=== PATIENT | female | born 1950 | race Caucasian/White ===

== ENCOUNTER 2018-01-10 19:57 | Inpatient (IN) | payer MEDICARE, MEDICAID ==
[~2018-01-10] VITALS: Ht 160 cm; Wt 45.5 kg
[~2018-01-10 19:57] MED LIST: ALBU18HF2 INH; BUDE10.22 INH; FERR325T39 PO; FLUO20CA39 PO; HYDR50CA5 PO; LIDO700A5 TOP; MESA800T PO; NIFE-2 PO; OLAN10TA3 PO; PANT-47 PO; TEG100T PO
[2018-01-10] MEDS ORDERED: acetaminophen 325mg tablet PO STA (20:10)
[2018-01-10] MEDS ORDERED: normal saline 1000ML IV soln IV ONE (20:10)
[2018-01-10] MEDS ORDERED: LORazepam 2 mg/ml vial IV ONE (20:20)
[2018-01-10 20:30] LABS: ABG HCO3 29.2 mmol/L (22.0-26.0); ABG OXYGEN SATURATION 87.5 % (95-98); ABG PCO2 (T) 60.8 mmHg (32.0-45.0); ABG PH (T) 7.304 (7.350-7.450); ABG PO2 (T) 62.6 mmHg (83-108); FCOHb 0.5 % (0.5-1.5); FLOW 4 L/min; FMetHb 0.3 % (0.3-1.12); FO2Hb 86.8 % (94-100); RESPIRATORY RATE (OBSERVED) 30 b/min; TOTAL HEMOGLOBIN 11.3 G/dl (12.0-16.0)
[2018-01-10 20:55] LABS: BASOPHILS % (AUTO) 0.2 % (0-1); EOSINOPHILS # (AUTO) 0.3 X10'3 (0-0.9); EOSINOPHILS % (AUTO) 1.9 % (0-6); HEMATOCRIT 32.1 % (35.0-45.0); HEMOGLOBIN 10.4 g/dl (12.0-16.0); LYMPHOCYTES # (AUTO) 1.3 X10'3 (1.1-4.8); MEAN CORPUSCULAR HGB CONC 32.3 % (33.0-36.5); MEAN CORPUSCULAR VOLUME 89.7 FL (78-98); MEAN PLATELET VOLUME 7.4 FL (7.4-10.4); MONOCYTES # (AUTO) 1.3 X10'3 (0-0.9); MONOCYTES % (AUTO) 9.9 % (2-12); NEUTROPHILS # (AUTO) 10.5 X10'3 (1.8-7.7); PLATELET COUNT 316 X10'3 (140-440); RED BLOOD COUNT 3.58 X10'6 (4.20-5.60); RED CELL DISTRIBUTION WIDTH 14.1 % (11.5-14.5); WHITE BLOOD COUNT 13.5 X10'3 (4.5-11.0)
[2018-01-10 20:59] LABS: CLARITY,URINE CLEAR (Clear); COLOR,URINE YELLOW (Yellow); GLUCOSE, URINE NEGATIVE (Neg); KETONES,URINE NEGATIVE (Neg); LEUKOCYTE ESTERASE ,URINE NEGATIVE (Neg); NITRITES, URINE NEGATIVE (Neg); OCCULT BLOOD,URINE NEGATIVE (Neg); PROTEIN,URINE 100 mg/dl (Neg); UROBILINOGEN,URINE 0.2 E.U/dL (0.2-1.0)
[2018-01-10 21:00] LABS: UA COLLECTION TYPE FOLEY CATH
[2018-01-10] MEDS ORDERED: levoFLOXACIN-Levaquin 750MG/D5 150 ML IV ONE (21:05)
[2018-01-10 21:10] LABS: HYALINE CASTS 0-3 /LPF (NEGATIVE); MUCUS STRANDS MANY /LPF (Neg); SQUAMOUS EPITHELIAL CELL,UR FEW /LPF (FEW)
[2018-01-10 21:10] LABS: D-DIMER 0.73 MG/L FEU (0-0.50)
[2018-01-10 21:13] LABS: WBC,URINE 0-4 /HPF (0-4)
[2018-01-10 21:14] LABS: BACTERIA,URINE NONE SEEN /HPF (Neg); RBC,URINE NONE SEEN /HPF (0-2)
[2018-01-10 21:16] LABS: ALANINE AMINOTRANSFERASE 28 U/L (12-78); ALBUMIN 2.8 G/DL (3.4-5.0); ALBUMIN/GLOBULIN RATIO 0.7 (1.1-1.5); ALKALINE PHOSPHATASE 72 IU/L (46-116); ANION GAP 6 (8-16); ASPARTATE AMINO TRANSFERASE 16 U/L (10-37); BILIRUBIN,TOTAL 0.2 MG/DL (0.1-1.0); BLOOD UREA NITROGEN 18 MG/DL (7-18); BUN/CREATININE RATIO 22.2 (6.6-38.0); CALCIUM 8.4 MG/DL (8.5-10.1); CHLORIDE 109 MMOL/L (99-107); CREATININE 0.81 MG/DL (0.40-0.90); GLUCOSE 117 MG/DL (70-104); MAGNESIUM 1.7 MG/DL (1.5-2.4); POTASSIUM 3.3 MMOL/L (3.5-5.1); SODIUM 146 MMOL/L (135-145); TOTAL CARBON DIOXIDE 30.9 MMOL/L (24-32); TOTAL PROTEIN 6.9 G/DL (6.4-8.2); eGFR 71 ML/MIN
[2018-01-10 21:47] LABS: ABG HCO3 28.8 mmol/L (22.0-26.0); ABG OXYGEN SATURATION 96.1 % (95-98); ABG PCO2 (T) 58.3 mmHg (32.0-45.0); ABG PH (T) 7.316 (7.350-7.450); ABG PO2 (T) 99.2 mmHg (83-108); ALLEN'S TEST Positive; FCOHb 0.4 % (0.5-1.5); FMetHb 0.1 % (0.3-1.12); FO2Hb 95.6 % (94-100); MINUTE VOLUME 9 L/min; RESPIRATORY RATE 16 b/min; RESPIRATORY RATE (OBSERVED) 24 b/min; TOTAL HEMOGLOBIN 10.4 G/dl (12.0-16.0)
[2018-01-10] MEDS ORDERED: methylPREDNISolone sod succ 125mg/2ml vial IV ONE (22:55)
[2018-01-10] MEDS ORDERED: iohexol 350MG/ML 100ml bottle IV ONE (22:58)
[2018-01-11] VITALS (8 sets, daily range): BP systolic 134–177; BP diastolic 66–95
[2018-01-11] MEDS ORDERED: mag hydrox/Alum hydrox/simeth 30ml oral suspension PO PRN (00:15)
[2018-01-11] MEDS ORDERED: ondansetron/PF 4mg/2ml inj IV PRN (00:15)
[2018-01-11] MEDS ORDERED: magnesium hydroxide 30ml (MOM) UD suspension PO PRN (00:15)
[2018-01-11 01:37] LABS: URINE AMPHETAMINE SCREEN POSITIVE (Neg); URINE BARBITUATE SCREEN NEGATIVE (Neg); URINE BENZODIAZEPINES SCREEN NEGATIVE (Neg); URINE CANNABINOID SCREEN POSITIVE (Neg); URINE COCAINE SCREEN NEGATIVE (Neg); URINE METHADONE SCREEN NEGATIVE (Neg); URINE OPIATE SCREEN POSITIVE (Neg); URINE PHENCYCLIDINE SCREEN NEGATIVE (Neg)
[2018-01-11] MEDS: heparin, porcine 5000 units/ml vial SQ SCH ×2 (08:42→21:11)
[2018-01-11] MEDS: methylPREDNISolone sod succ/PF 40mg inj. IV SCH ×3 (08:42→23:17)
[2018-01-11] MEDS ORDERED: FLUT1BLS3 (11:08)
[2018-01-11] MEDS ORDERED: [UNRECOGNIZED DRUG - CODE] (11:09)
[2018-01-11] MEDS ORDERED: MULT-955 PO (11:10)
[2018-01-11] MEDS ORDERED: ALBU8HFA PO (11:11)
[2018-01-11] MEDS ORDERED: NAPR-1115 PO (11:11)
[2018-01-11] MEDS ORDERED: SENN-161 PO (11:12)
[2018-01-11] MEDS ORDERED: TIOT18CA3 (11:12)
[2018-01-11] MEDS ORDERED: HYDR-569 PO (11:13)
[2018-01-11] MEDS ORDERED: pneumococcal 23-VAL P-sac vacc 25 mcg/0.5ml vial IMVAC ONE (11:50)
[2018-01-11] MEDS ORDERED: HYDR-4069 PO (12:20)
[2018-01-11] MEDS: FLUoxetine 20mg capsule PO SCH (12:56)
[2018-01-11] MEDS: guaiFENesin/DM oral syrup 5 ML CUP PO PRN ×2 (16:30→22:44)
[2018-01-11] MEDS: acetaminophen 325mg tablet PO PRN ×2 (16:34→22:44)
[2018-01-11] MEDS ORDERED: potassium Cl 20 mEq SR tablet PO PRN (17:00)
[2018-01-11] MEDS ORDERED: potassium Cl 40MEQ/NS 500ml 500 ML IV PRN ×2 (17:00)
[2018-01-11] MEDS ORDERED: HYDROXYZINE PAMOATE PO SCH (20:00)
[2018-01-11] MEDS: levoFLOXACIN 250mg tablet PO SCH (20:55)
[2018-01-11] MEDS: lactobacillus rhamnosus 10,000 MMU CELLS/CAPSULE PO SCH (20:55)
[2018-01-11] MEDS: carBAMazepine 100mg chewable tablet PO SCH (20:56)
[2018-01-11] MEDS: hydrALAZINE 25 MG tablet PO PRN (23:16)
[2018-01-12 03:00] VITALS: BP 144/80
[2018-01-12] MEDS: acetaminophen 325mg tablet PO PRN ×3 (05:17→23:54)
[2018-01-12] MEDS: guaiFENesin/DM oral syrup 5 ML CUP PO PRN ×3 (05:17→23:51)
[2018-01-12 05:41] LABS: BASOPHILS % (AUTO) 0 % (0-1); EOSINOPHILS # (AUTO) 0.3 X10'3 (0-0.9); EOSINOPHILS % (AUTO) 2.2 % (0-6); LYMPHOCYTES # (AUTO) 0.5 X10'3 (1.1-4.8); LYMPHOCYTES % (AUTO) 4.3 % (21-51); MEAN CORPUSCULAR HEMOGLOBIN 29.3 PG (27.0-31.0); MEAN CORPUSCULAR HGB CONC 32.3 % (33.0-36.5); MEAN CORPUSCULAR VOLUME 90.7 FL (78-98); MEAN PLATELET VOLUME 7.6 FL (7.4-10.4); MONOCYTES # (AUTO) 0.5 X10'3 (0-0.9); MONOCYTES % (AUTO) 4.2 % (2-12); NEUTROPHILS # (AUTO) 11.4 X10'3 (1.8-7.7); NEUTROPHILS % (AUTO) 89.3 % (42-75); PLATELET COUNT 327 X10'3 (140-440); RED BLOOD COUNT 3.74 X10'6 (4.20-5.60); RED CELL DISTRIBUTION WIDTH 13.8 % (11.5-14.5); WHITE BLOOD COUNT 12.7 X10'3 (4.5-11.0)
[2018-01-12 06:00] VITALS: BP 133/90
[2018-01-12 06:02] LABS: ALANINE AMINOTRANSFERASE 30 U/L (12-78); ALBUMIN 2.7 G/DL (3.4-5.0); ALBUMIN/GLOBULIN RATIO 0.6 (1.1-1.5); ALKALINE PHOSPHATASE 93 IU/L (46-116); ANION GAP 7 (8-16); ASPARTATE AMINO TRANSFERASE 23 U/L (10-37); BILIRUBIN,TOTAL 0.1 MG/DL (0.1-1.0); BLOOD UREA NITROGEN 12 MG/DL (7-18); CALCIUM 9.4 MG/DL (8.5-10.1); CHLORIDE 108 MMOL/L (99-107); CREATININE 0.75 MG/DL (0.40-0.90); GLUCOSE 147 MG/DL (70-104); POTASSIUM 4.5 MMOL/L (3.5-5.1); SODIUM 146 MMOL/L (135-145); TOTAL CARBON DIOXIDE 31.5 MMOL/L (24-32); TOTAL PROTEIN 7.1 G/DL (6.4-8.2); eGFR 77 ML/MIN
[2018-01-12] MEDS: methylPREDNISolone sod succ/PF 40mg inj. IV SCH ×3 (07:35→23:55)
[2018-01-12] MEDS: lactobacillus rhamnosus 10,000 MMU CELLS/CAPSULE PO SCH ×2 (07:36→20:45)
[2018-01-12] MEDS: pantoprazole 40mg Tablet.DR PO SCH (07:36)
[2018-01-12] MEDS: FLUoxetine 20mg capsule PO SCH (07:36)
[2018-01-12] MEDS: heparin, porcine 5000 units/ml vial SQ SCH ×2 (07:36→20:59)
[2018-01-12] MEDS: multivitamins, therapeutics tablet PO SCH (07:36)
[2018-01-12] MEDS: carBAMazepine 100mg chewable tablet PO SCH ×2 (07:37→20:45)
[2018-01-12] MEDS ORDERED: pneumococcal 23-VAL P-sac vacc 25 mcg/0.5ml vial IMVAC ONE ×2 (10:00)
[2018-01-12] MEDS ORDERED: FLU VACC QS2017-18 36MOS UP/PF 60 MCG/0.5 ML SYRINGE IMVAC ONE ×2 (10:00)
[2018-01-12 11:00] VITALS: BP 170/91
[2018-01-12 15:00] VITALS: BP 162/81
[2018-01-12] MEDS: hydrALAZINE 25 MG tablet PO PRN (16:26)
[2018-01-12 19:06] VITALS: BP 178/94
[2018-01-12] MEDS: levoFLOXACIN 250mg tablet PO SCH (20:45)
[2018-01-12] MEDS: cefTRIAXone 1g/NS 100ml IVPB 100 ML IV SCH (20:54)
[2018-01-12 23:00] VITALS: BP 127/88
[2018-01-13] MEDS: hydrALAZINE 25 MG tablet PO PRN ×4 (00:06→23:53)
[2018-01-13 03:00] VITALS: BP 144/82
[2018-01-13 05:17] LABS: BASOPHILS # (AUTO) 0.1 X10'3 (0-0.2); EOSINOPHILS % (AUTO) 0 % (0-6); HEMATOCRIT 37.1 % (35.0-45.0); HEMOGLOBIN 12.2 g/dl (12.0-16.0); LYMPHOCYTES # (AUTO) 0.9 X10'3 (1.1-4.8); LYMPHOCYTES % (AUTO) 6.2 % (21-51); MEAN CORPUSCULAR HEMOGLOBIN 29.4 PG (27.0-31.0); MEAN CORPUSCULAR VOLUME 89.1 FL (78-98); MEAN PLATELET VOLUME 7.2 FL (7.4-10.4); MONOCYTES # (AUTO) 0.3 X10'3 (0-0.9); MONOCYTES % (AUTO) 2.2 % (2-12); NEUTROPHILS # (AUTO) 12.7 X10'3 (1.8-7.7); NEUTROPHILS % (AUTO) 90.6 % (42-75); PLATELET COUNT 381 X10'3 (140-440); RED BLOOD COUNT 4.16 X10'6 (4.20-5.60); RED CELL DISTRIBUTION WIDTH 14.1 % (11.5-14.5)
[2018-01-13 05:46] LABS: ALANINE AMINOTRANSFERASE 30 U/L (12-78); ALBUMIN 2.9 G/DL (3.4-5.0); ALBUMIN/GLOBULIN RATIO 0.6 (1.1-1.5); ALKALINE PHOSPHATASE 95 IU/L (46-116); ANION GAP 8 (8-16); ASPARTATE AMINO TRANSFERASE 16 U/L (10-37); BILIRUBIN,TOTAL 0.2 MG/DL (0.1-1.0); BLOOD UREA NITROGEN 13 MG/DL (7-18); BUN/CREATININE RATIO 18.6 (6.6-38.0); CALCIUM 9.2 MG/DL (8.5-10.1); CHLORIDE 104 MMOL/L (99-107); GLUCOSE 147 MG/DL (70-104); MAGNESIUM 1.9 MG/DL (1.5-2.4); SODIUM 144 MMOL/L (135-145); TOTAL CARBON DIOXIDE 32.2 MMOL/L (24-32); TOTAL PROTEIN 7.4 G/DL (6.4-8.2); eGFR 84 ML/MIN
[2018-01-13 07:00] VITALS: BP 143/85
[2018-01-13] MEDS: methylPREDNISolone sod succ/PF 40mg inj. IV SCH ×3 (07:12→23:27)
[2018-01-13] MEDS: lactobacillus rhamnosus 10,000 MMU CELLS/CAPSULE PO SCH ×2 (07:12→20:17)
[2018-01-13] MEDS: pantoprazole 40mg Tablet.DR PO SCH (07:12)
[2018-01-13] MEDS: cefTRIAXone 1g/NS 100ml IVPB 100 ML IV SCH (07:12)
[2018-01-13] MEDS: multivitamins, therapeutics tablet PO SCH (07:13)
[2018-01-13] MEDS: heparin, porcine 5000 units/ml vial SQ SCH ×2 (07:13→20:17)
[2018-01-13] MEDS: FLUoxetine 20mg capsule PO SCH (07:13)
[2018-01-13] MEDS: carBAMazepine 100mg chewable tablet PO SCH ×2 (07:13→20:18)
[2018-01-13 11:00] VITALS: BP 188/101
[2018-01-13] MEDS: acetaminophen 325mg tablet PO PRN ×2 (11:24→18:28)
[2018-01-13] MEDS: guaiFENesin/DM oral syrup 5 ML CUP PO PRN ×2 (11:24→22:04)
[2018-01-13 15:00] VITALS: BP 168/91
[2018-01-13 20:00] VITALS: BP 142/80
[2018-01-13] MEDS: levoFLOXACIN 250mg tablet PO SCH (20:17)
[2018-01-13] MEDS ORDERED: nitroGLYCERIN 0.4mg SUBLingual tab SL PRN (23:10)
[2018-01-13 23:13] VITALS: BP 143/82
[2018-01-14] VITALS: BP 166/95
[2018-01-14] MEDS ORDERED: LORazepam 2 mg/ml vial IV PRN
[2018-01-14 01:03] VITALS: BP 117/76
[2018-01-14 05:14] LABS: BASOPHILS # (AUTO) 0.1 X10'3 (0-0.2); EOSINOPHILS % (AUTO) 0 % (0-6); HEMATOCRIT 35.4 % (35.0-45.0); HEMOGLOBIN 11.9 g/dl (12.0-16.0); LYMPHOCYTES # (AUTO) 0.7 X10'3 (1.1-4.8); LYMPHOCYTES % (AUTO) 7.1 % (21-51); MEAN CORPUSCULAR HEMOGLOBIN 29.7 PG (27.0-31.0); MEAN CORPUSCULAR HGB CONC 33.5 % (33.0-36.5); MEAN CORPUSCULAR VOLUME 88.8 FL (78-98); MEAN PLATELET VOLUME 7.3 FL (7.4-10.4); MONOCYTES # (AUTO) 0.5 X10'3 (0-0.9); MONOCYTES % (AUTO) 4.9 % (2-12); NEUTROPHILS # (AUTO) 8.2 X10'3 (1.8-7.7); PLATELET COUNT 372 X10'3 (140-440); RED BLOOD COUNT 3.99 X10'6 (4.20-5.60); RED CELL DISTRIBUTION WIDTH 13.9 % (11.5-14.5); WHITE BLOOD COUNT 9.5 X10'3 (4.5-11.0)
[2018-01-14 05:48] LABS: ALANINE AMINOTRANSFERASE 21 U/L (12-78); ALBUMIN 2.6 G/DL (3.4-5.0); ALBUMIN/GLOBULIN RATIO 0.6 (1.1-1.5); ALKALINE PHOSPHATASE 83 IU/L (46-116); ANION GAP 6 (8-16); ASPARTATE AMINO TRANSFERASE 11 U/L (10-37); BILIRUBIN,TOTAL 0.2 MG/DL (0.1-1.0); BLOOD UREA NITROGEN 18 MG/DL (7-18); BUN/CREATININE RATIO 25.4 (6.6-38.0); CHLORIDE 105 MMOL/L (99-107); CREATININE 0.71 MG/DL (0.40-0.90); GLUCOSE 140 MG/DL (70-104); SODIUM 144 MMOL/L (135-145); TOTAL CARBON DIOXIDE 33.3 MMOL/L (24-32); TOTAL PROTEIN 6.8 G/DL (6.4-8.2); eGFR 82 ML/MIN
[2018-01-14 08:00] VITALS: BP 147/83
[2018-01-14] MEDS: pantoprazole 40mg Tablet.DR PO SCH (09:49)
[2018-01-14] MEDS: cefTRIAXone 1g/NS 100ml IVPB 100 ML IV SCH (09:49)
[2018-01-14] MEDS: methylPREDNISolone sod succ/PF 40mg inj. IV SCH ×2 (09:49→16:16)
[2018-01-14] MEDS: FLUoxetine 20mg capsule PO SCH (09:50)
[2018-01-14] MEDS: lactobacillus rhamnosus 10,000 MMU CELLS/CAPSULE PO SCH ×2 (09:50→20:04)
[2018-01-14] MEDS: carBAMazepine 100mg chewable tablet PO SCH ×2 (09:50→20:05)
[2018-01-14] MEDS: heparin, porcine 5000 units/ml vial SQ SCH ×2 (09:51→20:05)
[2018-01-14] MEDS: multivitamins, therapeutics tablet PO SCH (09:51)
[2018-01-14] MEDS: guaiFENesin/DM oral syrup 5 ML CUP PO PRN ×2 (10:07→21:14)
[2018-01-14 12:13] VITALS: BP 188/93
[2018-01-14] MEDS: predniSONE 20 mg tablet PO SCH (16:45)
[2018-01-14 20:00] VITALS: BP 168/87
[2018-01-14] MEDS: acetaminophen 325mg tablet PO PRN (20:05)
[2018-01-14] MEDS: levoFLOXACIN 250mg tablet PO SCH (20:05)
[2018-01-14] MEDS: hydrALAZINE 25 MG tablet PO PRN (21:11)
[2018-01-15] VITALS: BP 141/82
[2018-01-15] MEDS: guaiFENesin/DM oral syrup 5 ML CUP PO PRN ×2 (04:07→11:05)
[2018-01-15 05:54] LABS: BASOPHILS % (AUTO) 0.1 % (0-1); EOSINOPHILS # (AUTO) 0.1 X10'3 (0-0.9); EOSINOPHILS % (AUTO) 0.9 % (0-6); HEMOGLOBIN 12.2 g/dl (12.0-16.0); LYMPHOCYTES # (AUTO) 1.3 X10'3 (1.1-4.8); LYMPHOCYTES % (AUTO) 12.1 % (21-51); MEAN CORPUSCULAR HEMOGLOBIN 29.6 PG (27.0-31.0); MEAN CORPUSCULAR VOLUME 89.7 FL (78-98); MEAN PLATELET VOLUME 7.5 FL (7.4-10.4); MONOCYTES # (AUTO) 0.8 X10'3 (0-0.9); MONOCYTES % (AUTO) 7.8 % (2-12); NEUTROPHILS # (AUTO) 8.3 X10'3 (1.8-7.7); NEUTROPHILS % (AUTO) 79.1 % (42-75); PLATELET COUNT 383 X10'3 (140-440); RED BLOOD COUNT 4.13 X10'6 (4.20-5.60); RED CELL DISTRIBUTION WIDTH 14.1 % (11.5-14.5); WHITE BLOOD COUNT 10.4 X10'3 (4.5-11.0)
[2018-01-15 06:13] LABS: ALANINE AMINOTRANSFERASE 23 U/L (12-78); ALBUMIN 2.5 G/DL (3.4-5.0); ALBUMIN/GLOBULIN RATIO 0.6 (1.1-1.5); ALKALINE PHOSPHATASE 77 IU/L (46-116); ASPARTATE AMINO TRANSFERASE 13 U/L (10-37); BILIRUBIN,TOTAL 0.2 MG/DL (0.1-1.0); BLOOD UREA NITROGEN 20 MG/DL (7-18); CALCIUM 8.5 MG/DL (8.5-10.1); CHLORIDE 99 MMOL/L (99-107); CREATININE 0.91 MG/DL (0.40-0.90); GLUCOSE 140 MG/DL (70-104); TOTAL CARBON DIOXIDE 34.9 MMOL/L (24-32); TOTAL PROTEIN 6.4 G/DL (6.4-8.2); eGFR 62 ML/MIN
[2018-01-15 06:49] LABS: ANION GAP 9 (8-16); POTASSIUM 3.5 MMOL/L (3.5-5.1); SODIUM 143 MMOL/L (135-145)
[2018-01-15 07:00] VITALS: BP 166/99
[2018-01-15] MEDS: pantoprazole 40mg Tablet.DR PO SCH (07:03)
[2018-01-15] MEDS: carBAMazepine 100mg chewable tablet PO SCH (07:03)
[2018-01-15] MEDS: lactobacillus rhamnosus 10,000 MMU CELLS/CAPSULE PO SCH (07:04)
[2018-01-15] MEDS: FLUoxetine 20mg capsule PO SCH (07:04)
[2018-01-15] MEDS: predniSONE 20 mg tablet PO SCH (07:04)
[2018-01-15] MEDS: multivitamins, therapeutics tablet PO SCH (07:04)
[2018-01-15] MEDS: cefTRIAXone 1g/NS 100ml IVPB 100 ML IV SCH (07:06)
[2018-01-15] MEDS: hydrALAZINE 25 MG tablet PO PRN (07:08)
[2018-01-15] MEDS: heparin, porcine 5000 units/ml vial SQ SCH (07:09)
[2018-01-15] MEDS ORDERED: ALBU8HFA PO (10:13)
[2018-01-15] MEDS ORDERED: PRED20TA PO (10:13)
[2018-01-15] MEDS ORDERED: TIOT18CA3 INH (10:13)
[2018-01-15] MEDS ORDERED: LEVO250T58 PO (10:13)
[2018-01-15 11:00] VITALS: BP 137/79
[2018-01-16] MEDS ORDERED: CefTRIAXone/D5W-Rocephin 1gm 50 ML IV SCH (08:00)
== END 2018-01-15 16:33 | DRG 190 ==
LOC: ER 19:58 → ED HOLD 01-11 00:11 → EDBEDREQ 01-11 00:27 → PCU 3S 01-11 02:00 → SUR 3N 01-13 18:56
PROVIDERS: ADMIT Internal Medicine; ATTEND Family Medicine
PROC: B32T1ZZ Computerized Tomography (CT Scan) of Left Pulmonary Artery using Low Osmolar Contrast (ICD-10-PCS; principal; 2018-01-10)
PROC: B3201ZZ Computerized Tomography (CT Scan) of Thoracic Aorta using Low Osmolar Contrast (ICD-10-PCS; 2018-01-10)
PROC: B32S1ZZ Computerized Tomography (CT Scan) of Right Pulmonary Artery using Low Osmolar Contrast (ICD-10-PCS; 2018-01-10)
PROC: 5A09357 Assistance with Respiratory Ventilation, Less than 24 Consecutive Hours, Continuous Positive Airway Pressure (ICD-10-PCS; 2018-01-10)
DX: J44.1 Chronic obstructive pulmonary disease with (acute) exacerbation (principal); J96.21 Acute and chronic respiratory failure with hypoxia; G92 Toxic encephalopathy; E87.0 Hyperosmolality and hypernatremia; J18.1 Lobar pneumonia, unspecified organism; J96.22 Acute and chronic respiratory failure with hypercapnia; Z68.1 Body mass index [BMI] 19.9 or less, adult; E87.2 Acidosis; F31.30 Bipolar disorder, current episode depressed, mild or moderate severity, unspecified; J44.0 Chronic obstructive pulmonary disease with (acute) lower respiratory infection; I10 Essential (primary) hypertension; E87.6 Hypokalemia; I25.10 Atherosclerotic heart disease of native coronary artery without angina pectoris; D64.9 Anemia, unspecified; F15.10 Other stimulant abuse, uncomplicated; F17.200 Nicotine dependence, unspecified, uncomplicated; F12.90 Cannabis use, unspecified, uncomplicated; T43.625A Adverse effect of amphetamines, initial encounter; Z96.649 Presence of unspecified artificial hip joint; Z59.0 Homelessness; Z79.899 Other long term (current) drug therapy; Z88.8 Allergy status to other drugs, medicaments and biological substances; Z87.11 Personal history of peptic ulcer disease; Z80.9 Family history of malignant neoplasm, unspecified; Y92.89 Other specified places as the place of occurrence of the external cause
CPT/HCPCS: 36415; 36600; 71045; 71275; 73610; 80053; 80305; 81001; 82803; 83605; 83735; 84484; 85018; 85025; 85379; 87040; 87070; 87502; 87503; 90732; 93005; 94660; 96361; 96365; 96375; 97116; 97161; 97530; 97535; 99285; A6449; J0696; J1644; J1956; J2060; J2920; J2930; J3480; J7030; J7512; Q9967

== ENCOUNTER 2019-01-26 12:27 | Emergency (ER) | payer MEDICARE, MEDICAID ==
[~2019-01-26] VITALS: Ht 160 cm; Wt 51.0 kg
[~2019-01-26 12:27] MED LIST changes: -ALBU18HF2 INH; +ALBU8HFA PO; -BUDE10.22 INH; -FERR325T39 PO; +FLUT1BLS3; +HYDR-4069 PO; -HYDR50CA5 PO; +LEVO250T58 PO; -LIDO700A5 TOP; -MESA800T PO; +MULT-955 PO; +NAPR-1115 PO; -NIFE-2 PO; -OLAN10TA3 PO; +PRED20TA PO; +SENN-162 PO; +TIOT18CA3 INH; +[UNRECOGNIZED DRUG - CODE]
[2019-01-26] MEDS ORDERED: ipratropium/albuterol 3ml nebule NEB ONE (14:00)
[2019-01-26] MEDS ORDERED: cloNIDine 0.1 mg tablet PO ONE (14:05)
--- NOTE | 2019-01-26 14:31 | NUR ---
RT AT BEDSIDE
[2019-01-26 14:33] LABS: BASOPHILS % (AUTO) 0.3 % (0-1); EOSINOPHILS # (AUTO) 0.3 X10'3 (0-0.9); EOSINOPHILS % (AUTO) 4.2 % (0-6); HEMATOCRIT 36.7 % (35.0-45.0); HEMOGLOBIN 11.9 g/dl (12.0-16.0); LYMPHOCYTES # (AUTO) 1.6 X10'3 (1.1-4.8); LYMPHOCYTES % (AUTO) 22.1 % (21-51); MEAN CORPUSCULAR HEMOGLOBIN 30.9 PG (27.0-31.0); MEAN CORPUSCULAR HGB CONC 32.5 g/dL (33.0-36.5); MEAN PLATELET VOLUME 7.2 FL (7.4-10.4); MONOCYTES # (AUTO) 0.6 X10'3 (0-0.9); MONOCYTES % (AUTO) 8.7 % (2-12); NEUTROPHILS # (AUTO) 4.7 X10'3 (1.8-7.7); NEUTROPHILS % (AUTO) 64.7 % (42-75); PLATELET COUNT 359 X10'3 (140-440); RED BLOOD COUNT 3.86 X10'6 (4.20-5.60); RED CELL DISTRIBUTION WIDTH 13.2 % (11.5-14.5); WHITE BLOOD COUNT 7.3 X10'3 (4.5-11.0)
[2019-01-26 14:53] LABS: ALANINE AMINOTRANSFERASE 11 U/L (12-78); ALBUMIN 3.6 G/DL (3.4-5.0); ALBUMIN/GLOBULIN RATIO 0.9 (1.1-1.5); ALKALINE PHOSPHATASE 68 IU/L (46-116); ANION GAP 9 (8-16); ASPARTATE AMINO TRANSFERASE 17 U/L (10-37); BILIRUBIN,TOTAL 0.2 MG/DL (0.1-1.0); BLOOD UREA NITROGEN 16 MG/DL (7-18); BUN/CREATININE RATIO 24.2 (6.6-38.0); CALCIUM 9.3 MG/DL (8.5-10.1); CHLORIDE 107 MMOL/L (99-107); CREATININE 0.66 MG/DL (0.40-0.90); GLUCOSE 85 MG/DL (70-104); POTASSIUM 3.8 MMOL/L (3.5-5.1); SODIUM 141 MMOL/L (135-145); TOTAL CARBON DIOXIDE 24.6 MMOL/L (24-32); TOTAL PROTEIN 7.7 G/DL (6.4-8.2); eGFR 89 ML/MIN
[2019-01-26 15:26] VITALS: BP 136/82
== END 2019-01-26 15:28 | disposition home or self-care (01) ==
LOC: ER 12:29
DX: R19.7 Diarrhea, unspecified (principal); J44.9 Chronic obstructive pulmonary disease, unspecified; I10 Essential (primary) hypertension; F12.90 Cannabis use, unspecified, uncomplicated; F15.10 Other stimulant abuse, uncomplicated; Z98.890 Other specified postprocedural states; Z59.0 Homelessness; Z87.11 Personal history of peptic ulcer disease; Z91.011 Allergy to milk products; Z88.5 Allergy status to narcotic agent; Z79.899 Other long term (current) drug therapy; Z99.81 Dependence on supplemental oxygen
CPT/HCPCS: 36415; 71045; 80053; 85025; 94640; 94760; 99284

== ENCOUNTER 2019-06-13 14:37 | Inpatient (IN) | payer MEDICARE, MEDICAID ==
[~2019-06-13] VITALS: Ht 160 cm; Wt 49.5 kg
[~2019-06-13 14:37] MED LIST changes: +GUAI100S69; -[UNRECOGNIZED DRUG - CODE]
[2019-06-13] MEDS ORDERED: ipratropium/albuterol 3ml nebule NEB ONE (15:45)
[2019-06-13] MEDS ORDERED: methylPREDNISolone sod succ 125mg/2ml vial IV ONE (15:45)
[2019-06-13] MEDS ORDERED: normal saline 1000ML IV soln IV ONE (15:45)
[2019-06-13 16:24] LABS: BASOPHILS % (AUTO) 0.4 % (0-1); EOSINOPHILS # (AUTO) 0.2 X10'3 (0-0.9); HEMATOCRIT 37.3 % (35.0-45.0); HEMOGLOBIN 12.1 g/dl (12.0-16.0); LYMPHOCYTES # (AUTO) 1.6 X10'3 (1.1-4.8); LYMPHOCYTES % (AUTO) 13.2 % (21-51); MEAN CORPUSCULAR HEMOGLOBIN 30.5 PG (27.0-31.0); MEAN CORPUSCULAR HGB CONC 32.5 g/dL (33.0-36.5); MEAN CORPUSCULAR VOLUME 93.8 FL (78-98); MONOCYTES % (AUTO) 8.2 % (2-12); NEUTROPHILS # (AUTO) 9.2 X10'3 (1.8-7.7); NEUTROPHILS % (AUTO) 76.2 % (42-75); PLATELET COUNT 445 X10'3 (140-440); RED BLOOD COUNT 3.97 X10'6 (4.20-5.60); RED CELL DISTRIBUTION WIDTH 13.8 % (11.5-14.5); WHITE BLOOD COUNT 12.1 X10'3 (4.5-11.0)
[2019-06-13 16:39] LABS: ALANINE AMINOTRANSFERASE 16 U/L (12-78); ALBUMIN 3.4 G/DL (3.4-5.0); ALBUMIN/GLOBULIN RATIO 0.8 (1.1-1.5); ALKALINE PHOSPHATASE 74 IU/L (46-116); ANION GAP 6 (8-16); ASPARTATE AMINO TRANSFERASE 11 U/L (10-37); BILIRUBIN,TOTAL 0.3 MG/DL (0.1-1.0); BLOOD UREA NITROGEN 10 MG/DL (7-18); BUN/CREATININE RATIO 14.5 (6.6-38.0); CALCIUM 9.3 MG/DL (8.5-10.1); CHLORIDE 106 MMOL/L (99-107); CREATININE 0.69 MG/DL (0.40-0.90); GLUCOSE 97 MG/DL (70-104); SODIUM 144 MMOL/L (135-145); TOTAL CARBON DIOXIDE 31.9 MMOL/L (24-32); TOTAL PROTEIN 7.7 G/DL (6.4-8.2); eGFR 85 ML/MIN
[2019-06-13 16:47] LABS: MAGNESIUM 1.8 MG/DL (1.5-2.4)
[2019-06-13] MEDS ORDERED: morphine 4 MG/ML inj SYRINge IV ONE (17:05)
[2019-06-13 17:38] LABS: CLARITY,URINE SLIGHTLY CLOUDY (Clear); COLOR,URINE YELLOW (Yellow); GLUCOSE, URINE NEGATIVE (Neg); KETONES,URINE NEGATIVE (Neg); LEUKOCYTE ESTERASE ,URINE NEGATIVE (Neg); NITRITES, URINE POSITIVE (Neg); OCCULT BLOOD,URINE NEGATIVE (Neg); PROTEIN,URINE NEGATIVE (Neg); UROBILINOGEN,URINE 0.2 E.U/dL (0.2-1.0)
[2019-06-13 17:41] LABS: UA COLLECTION TYPE STRAIGHT CATH
[2019-06-13 17:43] LABS: RBC,URINE NONE SEEN /HPF (0-2)
[2019-06-13 17:44] LABS: BACTERIA,URINE 4+ /HPF (Neg); SQUAMOUS EPITHELIAL CELL,UR FEW /LPF (FEW); WBC CLUMPS,URINE FEW /HPF (NEGATIVE)
[2019-06-13] MEDS ORDERED: AMLO-314 PO (17:47)
[2019-06-13] MEDS ORDERED: LOPE-144 PO (17:47)
[2019-06-13] MEDS ORDERED: MELA3TAB64 PO (17:47)
[2019-06-13] MEDS ORDERED: UMEC62.5 IH (17:47)
[2019-06-13] MEDS ORDERED: BUDE10.2 INH (17:47)
--- NOTE | 2019-06-13 18:27 | NUR ---
pt attempting to have bm, reports if she can have some jello or any other food than she will usually have bm w/in 20 min. Tatiana NGUYEN nitifiec and ok for Pt to have some food. Pt with urine and some small formed stool in bsc (contaminated, so unable to send for stool specimin). hr 102 otherwise vss. Enteric isolation pending cdiff lab.
[2019-06-13] MEDS: vancomycin 250MG/10ML UD oral solution 10ML BOTTLE PO SCH (18:34)
[2019-06-13] MEDS ORDERED: ondansetron/PF 4mg/2ml inj IV PRN (19:30)
[2019-06-13] MEDS ORDERED: acetaminophen 325mg tablet PO PRN (19:30)
[2019-06-13] MEDS: normal saline 1000ml 1,000 ML IV SCH (19:36)
[2019-06-13] MEDS ORDERED: non-formulary drug (Budesonide/Formoterol Fumarate (Symbicort 160-4.5 Mcg Inhaler) 1 PUFFS INH SCH (20:00)
--- NOTE | 2019-06-13 20:43 | NUR ---
ATTEMPTED TO CALL REPORT. SAID ROOM WAS NOT READY FOR ANOTHER 15 MINUTES. [facility] ROOM IS READY. RN STATED THEY WOULD CALL BACK IN 15 MINUTES WHEN THE ROOM IS READY.
[2019-06-13] MEDS ORDERED: ipratropium 0.5 MG/2.5ML nebule IH SCH (21:00)
[2019-06-13] MEDS ORDERED: albuterol 2.5 MG/3 ML nebule NEB SCH (21:00)
[2019-06-13 21:30] VITALS: BP 140/94
[2019-06-13] MEDS: budesonide 0.5mg/2ml UD nebule IH SCH (22:07)
[2019-06-13] MEDS: ipratropium/albuterol 3ml nebule IH SCH (22:08)
[2019-06-13] MEDS: heparin, porcine 5000 units/ml vial SQ SCH (22:28)
[2019-06-13] MEDS: Melatonin 3mg tablet PO SCH (22:28)
[2019-06-13] MEDS: guaiFENesin/DM 10ml UD oral syrup PO PRN (22:28)
[2019-06-13] MEDS: HYDROcodone/acetaminophen 5mg/325mg tablet PO PRN (22:29)
[2019-06-14] VITALS: BP 146/93
[2019-06-14] MEDS: vancomycin 250MG/10ML UD oral solution 10ML BOTTLE PO SCH ×4 (01:54→20:24)
[2019-06-14] MEDS: ipratropium/albuterol 3ml nebule IH SCH ×4 (03:12→21:11)
[2019-06-14] MEDS: guaiFENesin/DM 10ml UD oral syrup PO PRN ×2 (04:26→20:24)
[2019-06-14] MEDS: HYDROcodone/acetaminophen 5mg/325mg tablet PO PRN ×3 (04:27→22:39)
[2019-06-14] MEDS: normal saline 1000ml 1,000 ML IV SCH (04:32)
[2019-06-14 05:47] LABS: BASOPHILS % (AUTO) 0.2 % (0-1); EOSINOPHILS % (AUTO) 0 % (0-6); HEMATOCRIT 31.3 % (35.0-45.0); HEMOGLOBIN 10.2 g/dl (12.0-16.0); LYMPHOCYTES # (AUTO) 0.7 X10'3 (1.1-4.8); LYMPHOCYTES % (AUTO) 8.5 % (21-51); MEAN CORPUSCULAR HEMOGLOBIN 30.7 PG (27.0-31.0); MEAN CORPUSCULAR HGB CONC 32.5 g/dL (33.0-36.5); MEAN CORPUSCULAR VOLUME 94.4 FL (78-98); MEAN PLATELET VOLUME 7.4 FL (7.4-10.4); MONOCYTES # (AUTO) 0.1 X10'3 (0-0.9); MONOCYTES % (AUTO) 1.8 % (2-12); NEUTROPHILS # (AUTO) 7.4 X10'3 (1.8-7.7); NEUTROPHILS % (AUTO) 89.5 % (42-75); PLATELET COUNT 398 X10'3 (140-440); RED BLOOD COUNT 3.32 X10'6 (4.20-5.60); RED CELL DISTRIBUTION WIDTH 14.1 % (11.5-14.5); WHITE BLOOD COUNT 8.2 X10'3 (4.5-11.0)
[2019-06-14 06:13] LABS: ALANINE AMINOTRANSFERASE 16 U/L (12-78); ALBUMIN 2.9 G/DL (3.4-5.0); ALBUMIN/GLOBULIN RATIO 0.8 (1.1-1.5); ALKALINE PHOSPHATASE 59 IU/L (46-116); ANION GAP 8 (8-16); ASPARTATE AMINO TRANSFERASE 16 U/L (10-37); BILIRUBIN,TOTAL 0.2 MG/DL (0.1-1.0); BLOOD UREA NITROGEN 8 MG/DL (7-18); BUN/CREATININE RATIO 11.6 (6.6-38.0); CALCIUM 8.6 MG/DL (8.5-10.1); CHLORIDE 108 MMOL/L (99-107); CREATININE 0.69 MG/DL (0.40-0.90); GLUCOSE 194 MG/DL (70-104); POTASSIUM 3.3 MMOL/L (3.5-5.1); SODIUM 143 MMOL/L (135-145); TOTAL CARBON DIOXIDE 27.4 MMOL/L (24-32); TOTAL PROTEIN 6.6 G/DL (6.4-8.2); eGFR 85 ML/MIN
--- NOTE | 2019-06-14 06:17 | NUR ---
Problems reprioritized. Patient report given, questions answered & plan of care reviewed with CLAY Watkins. Addendum: 06/14/19 at 0617 by Samira Riley RN Amended: Links added.
[2019-06-14 07:00] VITALS: BP 151/93
[2019-06-14] MEDS: loperamide 2mg capsule PO SCH (07:44)
[2019-06-14] MEDS: heparin, porcine 5000 units/ml vial SQ SCH ×2 (07:44→20:23)
[2019-06-14] MEDS: amLODIPine 5mg tablet PO SCH (07:44)
[2019-06-14] MEDS ORDERED: LOPERAMIDE HCL PO SCH (08:00)
[2019-06-14] MEDS ORDERED: non-formulary drug (Umeclidinium Bromide (Incruse Ellipta) 1 PUFF) IH SCH (08:00)
[2019-06-14] MEDS: carBAMazepine 100mg chewable tablet PO SCH ×2 (08:30→20:24)
[2019-06-14] MEDS: budesonide 0.5mg/2ml UD nebule IH SCH ×2 (09:36→21:10)
[2019-06-14 11:00] VITALS: BP 153/84
[2019-06-14] MEDS ORDERED: potassium Cl 20 mEq SR tablet PO PRN (11:35)
[2019-06-14] MEDS ORDERED: magnesium 4gm in 100ml NS 100 ML IV PRN (11:35)
[2019-06-14] MEDS ORDERED: magnesium Cl slow-release 64mg tablet PO PRN (11:35)
[2019-06-14] MEDS ORDERED: potassium CL 10mEq/100ml bag 100 ML IV PRN (11:35)
[2019-06-14] MEDS: predniSONE 20 mg tablet PO SCH (14:48)
[2019-06-14] MEDS: potassium Cl 20 mEq SR tablet PO PRN ×2 (16:57→20:24)
[2019-06-14 18:00] VITALS: BP 132/84
--- NOTE | 2019-06-14 18:18 | NUR ---
Problems reprioritized. Patient report given, questions answered & plan of care reviewed with YONNY WILLIAMSON.
[2019-06-14] MEDS: Melatonin 3mg tablet PO SCH (20:25)
--- NOTE | 2019-06-14 21:18 | NUR ---
Patient in room [facility]. I have received report from CLAY Watkins and had the opportunity to ask questions and assume patient care. Addendum: 06/14/19 at 2120 by Samira Riley RN Amended: Links added.
[2019-06-15 00:16] VITALS: BP 139/87
[2019-06-15] MEDS: vancomycin 250MG/10ML UD oral solution 10ML BOTTLE PO SCH ×4 (02:21→20:06)
[2019-06-15] MEDS: guaiFENesin/DM 10ml UD oral syrup PO PRN ×4 (02:22→21:13)
[2019-06-15] MEDS: ipratropium/albuterol 3ml nebule IH SCH ×4 (03:20→20:20)
[2019-06-15] MEDS: HYDROcodone/acetaminophen 5mg/325mg tablet PO PRN ×3 (04:39→20:07)
[2019-06-15] MEDS: normal saline 1000ml 1,000 ML IV SCH ×2 (04:48→12:34)
[2019-06-15 05:21] LABS: BASOPHILS % (AUTO) 0.2 % (0-1); EOSINOPHILS % (AUTO) 0 % (0-6); HEMATOCRIT 32.3 % (35.0-45.0); HEMOGLOBIN 10.3 g/dl (12.0-16.0); LYMPHOCYTES # (AUTO) 1.1 X10'3 (1.1-4.8); LYMPHOCYTES % (AUTO) 7.4 % (21-51); MEAN CORPUSCULAR HEMOGLOBIN 30.1 PG (27.0-31.0); MEAN CORPUSCULAR HGB CONC 31.9 g/dL (33.0-36.5); MEAN CORPUSCULAR VOLUME 94.4 FL (78-98); MEAN PLATELET VOLUME 7.4 FL (7.4-10.4); MONOCYTES % (AUTO) 6.6 % (2-12); NEUTROPHILS # (AUTO) 12.8 X10'3 (1.8-7.7); NEUTROPHILS % (AUTO) 85.8 % (42-75); PLATELET COUNT 415 X10'3 (140-440); RED BLOOD COUNT 3.42 X10'6 (4.20-5.60); RED CELL DISTRIBUTION WIDTH 14.4 % (11.5-14.5); WHITE BLOOD COUNT 14.9 X10'3 (4.5-11.0)
[2019-06-15 05:41] LABS: ALANINE AMINOTRANSFERASE 18 U/L (12-78); ALBUMIN 3.1 G/DL (3.4-5.0); ALBUMIN/GLOBULIN RATIO 0.8 (1.1-1.5); ALKALINE PHOSPHATASE 57 IU/L (46-116); ANION GAP 6 (8-16); ASPARTATE AMINO TRANSFERASE 17 U/L (10-37); BILIRUBIN,TOTAL 0.2 MG/DL (0.1-1.0); BLOOD UREA NITROGEN 11 MG/DL (7-18); BUN/CREATININE RATIO 15.7 (6.6-38.0); CALCIUM 8.8 MG/DL (8.5-10.1); CHLORIDE 109 MMOL/L (99-107); GLUCOSE 136 MG/DL (70-104); POTASSIUM 4.2 MMOL/L (3.5-5.1); SODIUM 144 MMOL/L (135-145); TOTAL CARBON DIOXIDE 28.9 MMOL/L (24-32); TOTAL PROTEIN 6.9 G/DL (6.4-8.2); eGFR 83 ML/MIN
--- NOTE | 2019-06-15 06:37 | NUR ---
Problems reprioritized. Patient report given, questions answered & plan of care reviewed with CLAY Sánchez. Addendum: 06/15/19 at 0638 by Samira Riley RN Amended: Links added.
[2019-06-15] MEDS: loperamide 2mg capsule PO SCH (08:00)
[2019-06-15] MEDS: budesonide 0.5mg/2ml UD nebule IH SCH ×2 (08:23→20:20)
[2019-06-15 08:33] VITALS: BP 134/80
[2019-06-15] MEDS: carBAMazepine 100mg chewable tablet PO SCH ×2 (08:49→20:07)
[2019-06-15] MEDS: heparin, porcine 5000 units/ml vial SQ SCH ×2 (08:49→20:08)
[2019-06-15] MEDS: amLODIPine 5mg tablet PO SCH (08:50)
[2019-06-15] MEDS: predniSONE 20 mg tablet PO SCH (08:51)
[2019-06-15 11:00] VITALS: BP 152/101
[2019-06-15 13:35] VITALS: BP 163/83
--- NOTE | 2019-06-15 18:18 | NUR ---
Received report from CLAY Sánchez. Patient is awake and alert on 2L NC, in no apparent distress. Call light and items of frequent use within reach. Will continue to monitor.
--- NOTE | 2019-06-15 18:23 | NUR ---
Problems reprioritized. Patient report given, questions answered & plan of care reviewed with radha WILLIAMSON.
[2019-06-15 20:00] VITALS: BP 145/73
[2019-06-15] MEDS: Melatonin 3mg tablet PO SCH (20:06)
[2019-06-16] VITALS: BP 150/85
[2019-06-16] MEDS: HYDROcodone/acetaminophen 5mg/325mg tablet PO PRN ×3 (02:33→19:31)
[2019-06-16] MEDS: vancomycin 250MG/10ML UD oral solution 10ML BOTTLE PO SCH ×4 (02:33→19:30)
[2019-06-16] MEDS: ipratropium/albuterol 3ml nebule IH SCH ×4 (02:57→19:29)
[2019-06-16] MEDS: normal saline 1000ml 1,000 ML IV SCH ×2 (03:08→17:36)
[2019-06-16] MEDS: guaiFENesin/DM 10ml UD oral syrup PO PRN ×3 (03:57→22:41)
[2019-06-16 04:55] LABS: BASOPHILS % (AUTO) 0.4 % (0-1); EOSINOPHILS % (AUTO) 0.1 % (0-6); HEMOGLOBIN 10.3 g/dl (12.0-16.0); LYMPHOCYTES % (AUTO) 19.3 % (21-51); MEAN CORPUSCULAR HEMOGLOBIN 30.7 PG (27.0-31.0); MEAN CORPUSCULAR HGB CONC 32.3 g/dL (33.0-36.5); MEAN CORPUSCULAR VOLUME 95.3 FL (78-98); MEAN PLATELET VOLUME 7.6 FL (7.4-10.4); MONOCYTES # (AUTO) 1.2 X10'3 (0-0.9); MONOCYTES % (AUTO) 11.6 % (2-12); NEUTROPHILS % (AUTO) 68.6 % (42-75); PLATELET COUNT 401 X10'3 (140-440); RED BLOOD COUNT 3.36 X10'6 (4.20-5.60); RED CELL DISTRIBUTION WIDTH 14.7 % (11.5-14.5); WHITE BLOOD COUNT 10.2 X10'3 (4.5-11.0)
[2019-06-16 05:22] LABS: ALANINE AMINOTRANSFERASE 19 U/L (12-78); ALBUMIN 3.1 G/DL (3.4-5.0); ALBUMIN/GLOBULIN RATIO 0.8 (1.1-1.5); ALKALINE PHOSPHATASE 56 IU/L (46-116); ANION GAP 5 (8-16); ASPARTATE AMINO TRANSFERASE 14 U/L (10-37); BILIRUBIN,TOTAL 0.2 MG/DL (0.1-1.0); BLOOD UREA NITROGEN 10 MG/DL (7-18); BUN/CREATININE RATIO 15.9 (6.6-38.0); CALCIUM 8.6 MG/DL (8.5-10.1); CHLORIDE 108 MMOL/L (99-107); CREATININE 0.63 MG/DL (0.40-0.90); GLUCOSE 85 MG/DL (70-104); POTASSIUM 3.7 MMOL/L (3.5-5.1); SODIUM 146 MMOL/L (135-145); TOTAL CARBON DIOXIDE 32.9 MMOL/L (24-32); TOTAL PROTEIN 6.9 G/DL (6.4-8.2); eGFR > 90 ML/MIN
--- NOTE | 2019-06-16 06:25 | NUR ---
Patient in room [facility]. I have received report from CLAY Wu and breanne Bowman RN and had the opportunity to ask questions and assume patient care.
[2019-06-16 07:21] VITALS: BP 162/76
[2019-06-16] MEDS: amLODIPine 5mg tablet PO SCH (07:36)
[2019-06-16] MEDS: predniSONE 20 mg tablet PO SCH (07:36)
[2019-06-16] MEDS: loperamide 2mg capsule PO SCH (07:36)
[2019-06-16] MEDS: heparin, porcine 5000 units/ml vial SQ SCH ×2 (07:37→19:30)
[2019-06-16] MEDS: carBAMazepine 100mg chewable tablet PO SCH ×2 (08:27→19:30)
[2019-06-16] MEDS: budesonide 0.5mg/2ml UD nebule IH SCH ×2 (08:49→19:29)
--- NOTE | 2019-06-16 09:38 | NUR ---
gave pt a norco 5/325. she swallowed the pill with milk
[2019-06-16 11:12] VITALS: BP 162/76
--- NOTE | 2019-06-16 18:26 | NUR ---
Received report from CLAY Amin. Patient is awake and alert on 2L NC, in no apparent distress. Call light and items of frequent use within reach, will continue to monitor.
--- NOTE | 2019-06-16 18:32 | NUR ---
Problems reprioritized. Patient report given, questions answered & plan of care reviewed with CLAY Wu.
[2019-06-16] MEDS: Melatonin 3mg tablet PO SCH (19:30)
[2019-06-16 20:00] VITALS: BP 146/101
[2019-06-17] MEDS: HYDROcodone/acetaminophen 5mg/325mg tablet PO PRN ×3 (01:29→14:04)
[2019-06-17] MEDS: vancomycin 250MG/10ML UD oral solution 10ML BOTTLE PO SCH ×3 (01:29→14:04)
[2019-06-17] MEDS: ipratropium/albuterol 3ml nebule IH SCH ×3 (03:06→14:07)
[2019-06-17 05:22] LABS: BASOPHILS % (AUTO) 0.3 % (0-1); EOSINOPHILS % (AUTO) 0.4 % (0-6); HEMATOCRIT 29.4 % (35.0-45.0); HEMOGLOBIN 9.6 g/dl (12.0-16.0); LYMPHOCYTES # (AUTO) 2.1 X10'3 (1.1-4.8); LYMPHOCYTES % (AUTO) 24.4 % (21-51); MEAN CORPUSCULAR HEMOGLOBIN 30.8 PG (27.0-31.0); MEAN CORPUSCULAR HGB CONC 32.6 g/dL (33.0-36.5); MEAN CORPUSCULAR VOLUME 94.3 FL (78-98); MEAN PLATELET VOLUME 7.2 FL (7.4-10.4); MONOCYTES % (AUTO) 11.6 % (2-12); NEUTROPHILS # (AUTO) 5.6 X10'3 (1.8-7.7); NEUTROPHILS % (AUTO) 63.3 % (42-75); PLATELET COUNT 392 X10'3 (140-440); RED BLOOD COUNT 3.12 X10'6 (4.20-5.60); RED CELL DISTRIBUTION WIDTH 14.5 % (11.5-14.5); WHITE BLOOD COUNT 8.8 X10'3 (4.5-11.0)
[2019-06-17 05:33] LABS: ALANINE AMINOTRANSFERASE 16 U/L (12-78); ALBUMIN 2.8 G/DL (3.4-5.0); ALBUMIN/GLOBULIN RATIO 0.8 (1.1-1.5); ALKALINE PHOSPHATASE 50 IU/L (46-116); ANION GAP 5 (8-16); ASPARTATE AMINO TRANSFERASE 14 U/L (10-37); BILIRUBIN,TOTAL 0.2 MG/DL (0.1-1.0); BLOOD UREA NITROGEN 12 MG/DL (7-18); BUN/CREATININE RATIO 17.9 (6.6-38.0); CALCIUM 8.3 MG/DL (8.5-10.1); CHLORIDE 107 MMOL/L (99-107); CREATININE 0.67 MG/DL (0.40-0.90); GLUCOSE 87 MG/DL (70-104); POTASSIUM 3.3 MMOL/L (3.5-5.1); SODIUM 145 MMOL/L (135-145); TOTAL CARBON DIOXIDE 32.8 MMOL/L (24-32); TOTAL PROTEIN 6.1 G/DL (6.4-8.2); eGFR 88 ML/MIN
[2019-06-17] MEDS: guaiFENesin/DM 10ml UD oral syrup PO PRN ×2 (05:55→12:47)
--- NOTE | 2019-06-17 06:12 | NUR ---
Problems reprioritized. Patient report given, questions answered & plan of care reviewed with CLAY Amin.
--- NOTE | 2019-06-17 06:48 | NUR ---
Patient in room [facility]. I have received report from CLAY Wu and had the opportunity to ask questions and assume patient care.
[2019-06-17 07:20] VITALS: BP 168/77
[2019-06-17] MEDS: loperamide 2mg capsule PO SCH (07:27)
[2019-06-17] MEDS: amLODIPine 5mg tablet PO SCH (07:27)
[2019-06-17] MEDS: carBAMazepine 100mg chewable tablet PO SCH (07:27)
[2019-06-17] MEDS: heparin, porcine 5000 units/ml vial SQ SCH (07:27)
[2019-06-17] MEDS: budesonide 0.5mg/2ml UD nebule IH SCH (09:13)
[2019-06-17] MEDS: normal saline 1000ml 1,000 ML IV SCH (10:14)
[2019-06-17] MEDS: potassium Cl 20 mEq SR tablet PO PRN (10:14)
[2019-06-17] MEDS: predniSONE 20 mg tablet PO SCH (10:14)
[2019-06-17 11:00] VITALS: BP 146/98
[2019-06-17] MEDS ORDERED: CIPR250T4 PO (11:13)
[2019-06-17] MEDS ORDERED: VANC250C12 PO (11:13)
--- NOTE | 2019-06-17 11:46 | NUR ---
Pt continues to yell from her room "I don't want to go to rehab!" intermittently during morning shift. Pt states "my is hiring someone to take of me while he's at work". After being notified by Dr Cagle that she is being discharged to home, pt becomes agitated and continues to yell from room. Pt is now demanding that she cannot go home without a prescription for pain medication. Will notify MD and continue to monitor.
--- NOTE | 2019-06-17 11:54 | NUR ---
PAGER ID: [phone] MESSAGE: [facility] [phone] pt requesting prescription for pain medication with discharge Dr Cagle notified and is unwilling to prescribe norco 5/325 for discharge. will notify pt and continue to monitor.
--- NOTE | 2019-06-17 13:27 | NUR ---
PAGER ID: [phone] MESSAGE: [facility] [id number] pt states she has no amlodipine or tegretol refills at home and needs a prescription prior to discharge
[2019-06-17] MEDS ORDERED: CARB200T PO (13:34)
[2019-06-17] MEDS ORDERED: AMLO5TAB PO (13:34)
--- NOTE | 2019-06-17 15:32 | NUR ---
Pt discharged to home at 1500, with all belongings, in private vehicle, accompanied by . Discharge instructions and medications reviewed, new prescriptions delivered by [facility] and call in to [facility]. Pt provided with information regarding follow up appointment with PCP and instructions on how to obtain an [facility] worker. IV DC'd, cannula intact. Pt escorted to front lobby via wheelchair by PCT.
== END 2019-06-17 15:00 | disposition home or self-care (01) | DRG 372 ==
LOC: ER 14:38 → EDBEDREQSVC 20:37 → SUR 3N 20:42 → CMPBEDREQ 21:24
PROVIDERS: ADMIT Internal Medicine; ATTEND Internal Medicine
DX: A04.72 Enterocolitis due to Clostridium difficile, not specified as recurrent (principal); J44.1 Chronic obstructive pulmonary disease with (acute) exacerbation; N39.0 Urinary tract infection, site not specified; B96.20 Unspecified Escherichia coli [E. coli] as the cause of diseases classified elsewhere; E87.6 Hypokalemia; F12.90 Cannabis use, unspecified, uncomplicated; R09.02 Hypoxemia; F32.9 Major depressive disorder, single episode, unspecified; G40.909 Epilepsy, unspecified, not intractable, without status epilepticus; I10 Essential (primary) hypertension; Z87.11 Personal history of peptic ulcer disease; Z87.891 Personal history of nicotine dependence; Z99.81 Dependence on supplemental oxygen; Z59.0 Homelessness; Z88.5 Allergy status to narcotic agent; Z88.8 Allergy status to other drugs, medicaments and biological substances; Z82.5 Family history of asthma and other chronic lower respiratory diseases; Z82.3 Family history of stroke; Z80.9 Family history of malignant neoplasm, unspecified; Z79.899 Other long term (current) drug therapy
CPT/HCPCS: 36415; 71045; 74176; 80053; 81001; 82948; 83605; 83735; 83880; 84145; 85025; 85610; 87040; 87077; 87081; 87088; 87186; 93005; 94640; 94760; 96361; 96374; 96375; 97161; 97530; 99285; G0378; J1644; J2270; J2930; J7030; J7512; J7626

== ENCOUNTER 2019-06-27 12:25 | Emergency (ER) | payer MEDICARE, MEDICAID ==
[~2019-06-27] VITALS: Ht 162.6 cm; Wt 49.5 kg
[~2019-06-27 12:25] MED LIST changes: -ALBU8HFA PO; +AMLO-314 PO; +AMLO5TAB PO; +BUDE10.2 INH; +CARB200T PO; -FLUO20CA39 PO; -FLUT1BLS3; -GUAI100S69; -HYDR-4069 PO; -LEVO250T58 PO; +LOPE-144 PO; +MELA3TAB64 PO; -MULT-955 PO; -NAPR-1115 PO; -PANT-47 PO; -PRED20TA PO; -SENN-162 PO; -TEG100T PO; -TIOT18CA3 INH; +UMEC62.5 IH; +VANC250C12 PO
[2019-06-27] MEDS ORDERED: normal saline 1000ML IV soln IVB ONE (13:35)
[2019-06-27] MEDS ORDERED: morphine 4 MG/ML inj SYRINge IV PRN (13:35)
[2019-06-27] MEDS ORDERED: ondansetron/PF 4mg/2ml inj IV ONE (13:35)
[2019-06-27 13:58] LABS: BASOPHILS % (AUTO) 0.7 % (0-1); EOSINOPHILS # (AUTO) 0.3 X10'3 (0-0.9); EOSINOPHILS % (AUTO) 6.9 % (0-6); HEMATOCRIT 34.4 % (35.0-45.0); HEMOGLOBIN 11.1 g/dl (12.0-16.0); LYMPHOCYTES # (AUTO) 1.1 X10'3 (1.1-4.8); LYMPHOCYTES % (AUTO) 21.4 % (21-51); MEAN CORPUSCULAR HEMOGLOBIN 30.9 PG (27.0-31.0); MEAN CORPUSCULAR HGB CONC 32.4 g/dL (33.0-36.5); MEAN CORPUSCULAR VOLUME 95.4 FL (78-98); MEAN PLATELET VOLUME 6.6 FL (7.4-10.4); MONOCYTES # (AUTO) 0.5 X10'3 (0-0.9); MONOCYTES % (AUTO) 9.5 % (2-12); NEUTROPHILS # (AUTO) 3.1 X10'3 (1.8-7.7); NEUTROPHILS % (AUTO) 61.5 % (42-75); PLATELET COUNT 368 X10'3 (140-440); RED BLOOD COUNT 3.61 X10'6 (4.20-5.60); RED CELL DISTRIBUTION WIDTH 14.3 % (11.5-14.5); WHITE BLOOD COUNT 5.1 X10'3 (4.5-11.0)
[2019-06-27 14:06] LABS: ALANINE AMINOTRANSFERASE 17 U/L (12-78); ALBUMIN/GLOBULIN RATIO 0.8 (1.1-1.5); ALKALINE PHOSPHATASE 101 IU/L (46-116); ANION GAP 5 (8-16); ASPARTATE AMINO TRANSFERASE 17 U/L (10-37); BILIRUBIN,TOTAL 0.1 MG/DL (0.1-1.0); BLOOD UREA NITROGEN 15 MG/DL (7-18); BUN/CREATININE RATIO 17.6 (6.6-38.0); CALCIUM 8.7 MG/DL (8.5-10.1); CHLORIDE 110 MMOL/L (99-107); CREATININE 0.85 MG/DL (0.40-0.90); GLUCOSE 106 MG/DL (70-104); LIPASE 81 U/L (73-393); SODIUM 144 MMOL/L (135-145); TOTAL CARBON DIOXIDE 28.9 MMOL/L (24-32); TOTAL PROTEIN 6.9 G/DL (6.4-8.2); eGFR 67 ML/MIN
[2019-06-27 14:25] LABS: COLOR,URINE YELLOW (Yellow); GLUCOSE, URINE NEGATIVE (Neg); KETONES,URINE NEGATIVE (Neg); LEUKOCYTE ESTERASE ,URINE NEGATIVE (Neg); NITRITES, URINE POSITIVE (Neg); OCCULT BLOOD,URINE NEGATIVE (Neg); PROTEIN,URINE TRACE mg/dl (Neg); UROBILINOGEN,URINE 0.2 E.U/dL (0.2-1.0)
[2019-06-27 14:29] LABS: CLARITY,URINE SLIGHTLY CLOUDY (Clear); UA COLLECTION TYPE STRAIGHT CATH
[2019-06-27 14:36] LABS: BACTERIA,URINE 4+ /HPF (Neg); RBC,URINE NONE SEEN /HPF (0-2)
[2019-06-27 14:37] LABS: MUCUS STRANDS NONE SEEN /LPF (Neg); SQUAMOUS EPITHELIAL CELL,UR FEW /LPF (FEW)
--- NOTE | 2019-06-27 14:41 | NUR ---
pt back from ct
[2019-06-27] MEDS ORDERED: ketorolac trometh. 30mg/ml inj. IM ONE (15:10)
[2019-06-27] MEDS ORDERED: SULF1TAB49 PO (15:44)
[2019-06-27] MEDS ORDERED: ipratropium/albuterol 3ml nebule NEB ONE (15:45)
[2019-06-27] MEDS ORDERED: CefTRIAXone 2gm/D5W 50ml 50 ML IV ONE (15:45)
[2019-06-27 16:38] VITALS: BP 169/97
== END 2019-06-27 16:40 | disposition home or self-care (01) ==
LOC: ER 12:26
DX: N39.0 Urinary tract infection, site not specified (principal); M54.5 Low back pain; R10.9 Unspecified abdominal pain; I10 Essential (primary) hypertension; J44.9 Chronic obstructive pulmonary disease, unspecified; C7A.00 Malignant carcinoid tumor of unspecified site; F31.9 Bipolar disorder, unspecified; F12.90 Cannabis use, unspecified, uncomplicated; F15.90 Other stimulant use, unspecified, uncomplicated; Z87.11 Personal history of peptic ulcer disease; Z98.890 Other specified postprocedural states; Z86.73 Personal history of transient ischemic attack (TIA), and cerebral infarction without residual deficits; Z59.0 Homelessness
CPT/HCPCS: 36415; 74176; 80053; 81001; 83690; 85025; 87088; 87186; 94640; 94760; 96365; 96372; 96375; 99284; J0696; J1885; J2270; J2405; J7030; 87077

== ENCOUNTER 2019-07-02 17:13 | Inpatient (IN) | payer MEDICARE, MEDICAID ==
[~2019-07-02] VITALS: Ht 160 cm; Wt 50.9 kg
[~2019-07-02 17:13] MED LIST changes: +SULF1TAB49 PO
[2019-07-02] MEDS ORDERED: ketorolac trometh inj. 60 MG/2 ML VIAL IM ONE (18:25)
[2019-07-02] MEDS ORDERED: traMADol 50MG tablet PO ONE (18:25)
[2019-07-02] MEDS ORDERED: acetaminophen 325mg tablet PO ONE (18:25)
--- NOTE | 2019-07-02 20:02 | NUR ---
Attempted to gait test pt to bathroom. Pt insisted that she was unable to walk. Sit to stand used to transfer patient to bathroom. Pt minimaly cooperative. Pt needed to be coaxed to sit on edge of bed then stand on device despite reporting that she transfered to a bedside commode at home.
[2019-07-02] MEDS ORDERED: aspirin 325mg tablet PO ONE (20:10)
[2019-07-02] MEDS ORDERED: fentaNYL/PF 50MCG/1 ML 2ML syringe IV ONE (20:15)
[2019-07-02] MEDS ORDERED: FERR324T PO (22:40)
[2019-07-02] MEDS ORDERED: mag hydrox/Alum hydrox/simeth 30ml oral suspension PO PRN (22:40)
[2019-07-02] MEDS ORDERED: ondansetron/PF 4mg/2ml inj IV PRN (22:40)
[2019-07-02] MEDS ORDERED: ALBU2.5V10 INH (22:40)
[2019-07-02] MEDS ORDERED: magnesium hydroxide 30ml (MOM) UD suspension PO PRN (22:40)
[2019-07-02] MEDS ORDERED: acetaminophen 325mg tablet PO PRN (22:40)
[2019-07-02] MEDS ORDERED: albuterol 2.5 MG/3 ML nebule NEB SCH (23:00)
--- NOTE | 2019-07-03 00:18 | NUR ---
received report from taylor nice . pt arrived via gurney and xfer to bed without assist. pt c/o r hip pain, educated pt regarding room, bed, call light, poc. pt verbalized understanding.
[2019-07-03] MEDS: HYDROcodone/acetaminophen 5mg/325mg tablet PO PRN ×6 (00:32→22:03)
[2019-07-03] MEDS ORDERED: Melatonin 3mg tablet PO ONE (00:50)
[2019-07-03] MEDS ORDERED: albuterol 2.5 MG/3 ML nebule NEB PRN (01:00)
--- NOTE | 2019-07-03 01:01 | NUR ---
I called Dr. Thomas regarding pt's diarrhea and concern that she was treated with Po Vancomycin her last visit for Cdiff. At this point he does not want a sample taken or for her to be treated for the loose stools; He reviewed Dr. Kapoor notes from the last visit and does not believe she needs treated for Cdiff per the notes from Dr. Kapoor. Dr. Thomas did order prn breathing treatment but no anti anxiety medicine due to severe copd history.
[2019-07-03 01:24] VITALS: BP 170/97
[2019-07-03] MEDS: Melatonin 3mg tablet PO SCH ×2 (01:32→20:39)
[2019-07-03] MEDS ORDERED: guaiFENesin 200 MG/10 ML oral syrup UD cup PO PRN (02:15)
[2019-07-03] MEDS: ipratropium 0.5 MG/2.5ML nebule IH SCH ×3 (05:00→14:26)
[2019-07-03] MEDS: albuterol 2.5 MG/3 ML nebule NEB SCH ×3 (05:00→14:26)
[2019-07-03 06:00] VITALS: BP 167/92
[2019-07-03 06:58] LABS: BASOPHILS # (AUTO) 0.1 X10'3 (0-0.2); BASOPHILS % (AUTO) 1.3 % (0-1); EOSINOPHILS # (AUTO) 0.1 X10'3 (0-0.9); EOSINOPHILS % (AUTO) 1.9 % (0-6); HEMATOCRIT 34.2 % (35.0-45.0); HEMOGLOBIN 11.1 g/dl (12.0-16.0); LYMPHOCYTES # (AUTO) 1.7 X10'3 (1.1-4.8); LYMPHOCYTES % (AUTO) 21.2 % (21-51); MEAN CORPUSCULAR HEMOGLOBIN 30.7 PG (27.0-31.0); MEAN CORPUSCULAR HGB CONC 32.3 g/dL (33.0-36.5); MEAN PLATELET VOLUME 6.7 FL (7.4-10.4); MONOCYTES # (AUTO) 0.6 X10'3 (0-0.9); MONOCYTES % (AUTO) 7.8 % (2-12); NEUTROPHILS # (AUTO) 5.3 X10'3 (1.8-7.7); NEUTROPHILS % (AUTO) 67.8 % (42-75); PLATELET COUNT 449 X10'3 (140-440); WHITE BLOOD COUNT 7.8 X10'3 (4.5-11.0)
[2019-07-03 07:12] LABS: ALANINE AMINOTRANSFERASE 20 U/L (12-78); ALBUMIN 3.4 G/DL (3.4-5.0); ALBUMIN/GLOBULIN RATIO 0.9 (1.1-1.5); ALKALINE PHOSPHATASE 186 IU/L (46-116); ANION GAP 18 (8-16); ASPARTATE AMINO TRANSFERASE 36 U/L (10-37); BILIRUBIN,TOTAL 0.2 MG/DL (0.1-1.0); BLOOD UREA NITROGEN 18 MG/DL (7-18); CALCIUM 9.2 MG/DL (8.5-10.1); CHLORIDE 108 MMOL/L (99-107); CREATININE 0.82 MG/DL (0.40-0.90); GLUCOSE 72 MG/DL (70-104); SODIUM 143 MMOL/L (135-145); TOTAL CARBON DIOXIDE 17.1 MMOL/L (24-32); eGFR 70 ML/MIN
[2019-07-03 07:16] LABS: POTASSIUM 3.3 MMOL/L (3.5-5.1)
[2019-07-03] MEDS ORDERED: amLODIPine 5mg tablet PO SCH (08:00)
[2019-07-03] MEDS: budesonide 0.5mg/2ml UD nebule IH SCH ×2 (08:08→20:10)
[2019-07-03] MEDS: ferrous gluconate 324mg tablet PO SCH ×2 (08:24→20:40)
[2019-07-03] MEDS: heparin, porcine 5000 units/ml vial SQ SCH ×2 (08:25→20:38)
[2019-07-03] MEDS: carBAMazepine 100mg chewable tablet PO SCH ×2 (08:25→20:39)
[2019-07-03] MEDS: vancomycin 250MG/10ML UD oral solution 10ML BOTTLE PO SCH ×3 (08:29→20:38)
[2019-07-03 10:00] VITALS: BP 125/80
[2019-07-03] MEDS ORDERED: potassium Cl 20 mEq SR tablet PO PRN (15:50)
[2019-07-03] MEDS ORDERED: potassium CL 10mEq/100ml bag 100 ML IV PRN (15:50)
[2019-07-03] MEDS ORDERED: magnesium 4gm in 100ml NS 100 ML IV PRN (15:50)
[2019-07-03 19:00] VITALS: BP 140/81
[2019-07-03] MEDS: ipratropium/albuterol 3ml nebule IH SCH (20:10)
[2019-07-03 22:00] VITALS: BP 130/90
[2019-07-03] MEDS: potassium Cl 20 mEq SR tablet PO PRN (23:41)
[2019-07-04] MEDS: vancomycin 250MG/10ML UD oral solution 10ML BOTTLE PO SCH ×4 (02:04→20:25)
[2019-07-04] MEDS: HYDROcodone/acetaminophen 5mg/325mg tablet PO PRN ×5 (02:04→19:17)
[2019-07-04] MEDS: ipratropium/albuterol 3ml nebule IH SCH ×4 (02:24→20:37)
[2019-07-04] MEDS: potassium Cl 20 mEq SR tablet PO PRN ×4 (04:55→21:26)
[2019-07-04] MEDS: benzonatate 100mg capsule PO PRN ×2 (04:57→21:26)
[2019-07-04 06:00] VITALS: BP 123/69
--- NOTE | 2019-07-04 06:21 | NUR ---
Patient in room [facility]. I have received report from CLAY Dean and had the opportunity to ask questions and assume patient care.
--- NOTE | 2019-07-04 06:21 | NUR ---
Problems reprioritized. Patient report given, questions answered & plan of care reviewed with CLAY PADILLA.
[2019-07-04 06:41] LABS: BASOPHILS % (AUTO) 0.7 % (0-1); EOSINOPHILS # (AUTO) 0.2 X10'3 (0-0.9); EOSINOPHILS % (AUTO) 3.3 % (0-6); HEMATOCRIT 32.9 % (35.0-45.0); HEMOGLOBIN 10.8 g/dl (12.0-16.0); LYMPHOCYTES # (AUTO) 1.6 X10'3 (1.1-4.8); MEAN CORPUSCULAR HEMOGLOBIN 30.8 PG (27.0-31.0); MEAN CORPUSCULAR HGB CONC 32.9 g/dL (33.0-36.5); MEAN CORPUSCULAR VOLUME 93.7 FL (78-98); MEAN PLATELET VOLUME 6.3 FL (7.4-10.4); MONOCYTES # (AUTO) 0.7 X10'3 (0-0.9); MONOCYTES % (AUTO) 11.3 % (2-12); NEUTROPHILS # (AUTO) 3.4 X10'3 (1.8-7.7); NEUTROPHILS % (AUTO) 57.7 % (42-75); PLATELET COUNT 401 X10'3 (140-440); RED BLOOD COUNT 3.51 X10'6 (4.20-5.60); RED CELL DISTRIBUTION WIDTH 15.3 % (11.5-14.5)
[2019-07-04 07:22] LABS: ALANINE AMINOTRANSFERASE 21 U/L (12-78); ALBUMIN 3.1 G/DL (3.4-5.0); ALBUMIN/GLOBULIN RATIO 0.9 (1.1-1.5); ALKALINE PHOSPHATASE 174 IU/L (46-116); ANION GAP 7 (8-16); ASPARTATE AMINO TRANSFERASE 23 U/L (10-37); BILIRUBIN,TOTAL 0.2 MG/DL (0.1-1.0); BLOOD UREA NITROGEN 13 MG/DL (7-18); BUN/CREATININE RATIO 16.9 (6.6-38.0); CALCIUM 8.5 MG/DL (8.5-10.1); CHLORIDE 110 MMOL/L (99-107); CREATININE 0.77 MG/DL (0.40-0.90); GLUCOSE 85 MG/DL (70-104); MAGNESIUM 1.8 MG/DL (1.5-2.4); POTASSIUM 3.3 MMOL/L (3.5-5.1); SODIUM 144 MMOL/L (135-145); TOTAL CARBON DIOXIDE 27.1 MMOL/L (24-32); TOTAL PROTEIN 6.4 G/DL (6.4-8.2); eGFR 75 ML/MIN
[2019-07-04] MEDS: ferrous gluconate 324mg tablet PO SCH ×2 (07:50→20:25)
[2019-07-04] MEDS: amLODIPine 5mg tablet PO SCH (07:50)
[2019-07-04] MEDS: carBAMazepine 100mg chewable tablet PO SCH ×2 (07:51→21:23)
[2019-07-04] MEDS: heparin, porcine 5000 units/ml vial SQ SCH ×2 (07:51→20:25)
[2019-07-04] MEDS: budesonide 0.5mg/2ml UD nebule IH SCH ×2 (08:53→20:37)
[2019-07-04 10:00] VITALS: BP 131/75
[2019-07-04 18:00] VITALS: BP 141/76
--- NOTE | 2019-07-04 18:30 | NUR ---
Problems reprioritized. Patient report given, questions answered & plan of care reviewed with CLAY Brink.
--- NOTE | 2019-07-04 18:53 | NUR ---
Patient in room [facility]. I have received report from CLAY Clemons and had the opportunity to ask questions and assume patient care. Addendum: 07/04/19 at 1853 by Keena Noble RN Amended: Links added.
[2019-07-04] MEDS: Melatonin 3mg tablet PO SCH (21:23)
[2019-07-04 22:00] VITALS: BP 114/85
[2019-07-05] MEDS: HYDROcodone/acetaminophen 5mg/325mg tablet PO PRN ×6 (00:08→20:20)
[2019-07-05] MEDS: ipratropium/albuterol 3ml nebule IH SCH ×4 (02:12→20:50)
[2019-07-05] MEDS: vancomycin 250MG/10ML UD oral solution 10ML BOTTLE PO SCH ×4 (02:24→19:44)
[2019-07-05 05:00] VITALS: BP 131/82
[2019-07-05 06:29] LABS: BASOPHILS # (AUTO) 0.1 X10'3 (0-0.2); EOSINOPHILS # (AUTO) 0.2 X10'3 (0-0.9); EOSINOPHILS % (AUTO) 4.2 % (0-6); HEMATOCRIT 30.9 % (35.0-45.0); HEMOGLOBIN 10.4 g/dl (12.0-16.0); LYMPHOCYTES # (AUTO) 1.6 X10'3 (1.1-4.8); LYMPHOCYTES % (AUTO) 26.7 % (21-51); MEAN CORPUSCULAR HEMOGLOBIN 31.4 PG (27.0-31.0); MEAN CORPUSCULAR HGB CONC 33.5 g/dL (33.0-36.5); MEAN CORPUSCULAR VOLUME 93.6 FL (78-98); MEAN PLATELET VOLUME 6.7 FL (7.4-10.4); MONOCYTES # (AUTO) 0.6 X10'3 (0-0.9); NEUTROPHILS # (AUTO) 3.4 X10'3 (1.8-7.7); NEUTROPHILS % (AUTO) 58.1 % (42-75); PLATELET COUNT 405 X10'3 (140-440); RED CELL DISTRIBUTION WIDTH 15.3 % (11.5-14.5); WHITE BLOOD COUNT 5.9 X10'3 (4.5-11.0)
--- NOTE | 2019-07-05 06:35 | NUR ---
Problems reprioritized. Patient report given, questions answered & plan of care reviewed with CLAY Bucio.
[2019-07-05 06:55] LABS: ALANINE AMINOTRANSFERASE 22 U/L (12-78); ALBUMIN 2.9 G/DL (3.4-5.0); ALBUMIN/GLOBULIN RATIO 0.9 (1.1-1.5); ALKALINE PHOSPHATASE 174 IU/L (46-116); ANION GAP 9 (8-16); ASPARTATE AMINO TRANSFERASE 20 U/L (10-37); BILIRUBIN,TOTAL 0.2 MG/DL (0.1-1.0); BLOOD UREA NITROGEN 11 MG/DL (7-18); BUN/CREATININE RATIO 16.7 (6.6-38.0); CALCIUM 8.5 MG/DL (8.5-10.1); CHLORIDE 110 MMOL/L (99-107); CREATININE 0.66 MG/DL (0.40-0.90); GLUCOSE 94 MG/DL (70-104); MAGNESIUM 1.8 MG/DL (1.5-2.4); SODIUM 144 MMOL/L (135-145); TOTAL CARBON DIOXIDE 25.3 MMOL/L (24-32); TOTAL PROTEIN 6.2 G/DL (6.4-8.2); eGFR 89 ML/MIN
[2019-07-05] MEDS: budesonide 0.5mg/2ml UD nebule IH SCH ×2 (07:56→20:50)
[2019-07-05 08:00] VITALS: BP 131/82
[2019-07-05] MEDS: carBAMazepine 100mg chewable tablet PO SCH ×2 (09:49→19:44)
[2019-07-05] MEDS: ferrous gluconate 324mg tablet PO SCH ×2 (09:50→19:43)
[2019-07-05] MEDS: heparin, porcine 5000 units/ml vial SQ SCH ×2 (09:52→19:47)
[2019-07-05 10:00] VITALS: BP 137/91
[2019-07-05] MEDS: amLODIPine 5mg tablet PO SCH (10:04)
[2019-07-05 18:00] VITALS: BP 127/83
--- NOTE | 2019-07-05 18:30 | NUR ---
Patient in room [facility]. I have received report from Rupinder WILLIAMSON and had the opportunity to ask questions and assume patient care.
--- NOTE | 2019-07-05 18:54 | NUR ---
GAVE REPORT TO TERESA WILLIAMSON.
[2019-07-05] MEDS: lactobacillus rhamnosus 10,000 MMU CELLS/CAPSULE PO SCH (19:43)
[2019-07-05] MEDS: Melatonin 3mg tablet PO SCH (20:26)
[2019-07-05] MEDS: benzonatate 100mg capsule PO PRN (21:49)
[2019-07-05] MEDS: temazepam 15mg capsule PO PRN (21:49)
[2019-07-05 22:00] VITALS: BP 133/60
[2019-07-06] MEDS: HYDROcodone/acetaminophen 5mg/325mg tablet PO PRN ×6 (01:18→22:50)
[2019-07-06] MEDS: vancomycin 250MG/10ML UD oral solution 10ML BOTTLE PO SCH ×4 (01:21→18:47)
[2019-07-06] MEDS: ipratropium/albuterol 3ml nebule IH SCH ×4 (02:13→20:47)
[2019-07-06 06:00] VITALS: BP 121/87
--- NOTE | 2019-07-06 06:22 | NUR ---
Reported off to Bassam WILLIAMSON. Patient is currently sleeping.
[2019-07-06 06:28] LABS: BASOPHILS # (AUTO) 0.1 X10'3 (0-0.2); EOSINOPHILS # (AUTO) 0.2 X10'3 (0-0.9); EOSINOPHILS % (AUTO) 3.8 % (0-6); HEMATOCRIT 32.2 % (35.0-45.0); HEMOGLOBIN 10.6 g/dl (12.0-16.0); LYMPHOCYTES # (AUTO) 1.6 X10'3 (1.1-4.8); LYMPHOCYTES % (AUTO) 28.5 % (21-51); MEAN CORPUSCULAR HEMOGLOBIN 31.2 PG (27.0-31.0); MEAN CORPUSCULAR HGB CONC 32.9 g/dL (33.0-36.5); MEAN CORPUSCULAR VOLUME 94.7 FL (78-98); MEAN PLATELET VOLUME 7.2 FL (7.4-10.4); MONOCYTES # (AUTO) 0.6 X10'3 (0-0.9); NEUTROPHILS # (AUTO) 3.1 X10'3 (1.8-7.7); NEUTROPHILS % (AUTO) 55.7 % (42-75); PLATELET COUNT 418 X10'3 (140-440); RED CELL DISTRIBUTION WIDTH 15.9 % (11.5-14.5); WHITE BLOOD COUNT 5.5 X10'3 (4.5-11.0)
[2019-07-06 06:38] LABS: ALANINE AMINOTRANSFERASE 21 U/L (12-78); ALBUMIN 2.9 G/DL (3.4-5.0); ALBUMIN/GLOBULIN RATIO 0.9 (1.1-1.5); ALKALINE PHOSPHATASE 176 IU/L (46-116); ANION GAP 8 (8-16); ASPARTATE AMINO TRANSFERASE 19 U/L (10-37); BILIRUBIN,TOTAL 0.2 MG/DL (0.1-1.0); BLOOD UREA NITROGEN 11 MG/DL (7-18); BUN/CREATININE RATIO 16.7 (6.6-38.0); CALCIUM 8.7 MG/DL (8.5-10.1); CHLORIDE 109 MMOL/L (99-107); CREATININE 0.66 MG/DL (0.40-0.90); GLUCOSE 97 MG/DL (70-104); MAGNESIUM 1.9 MG/DL (1.5-2.4); SODIUM 145 MMOL/L (135-145); TOTAL CARBON DIOXIDE 28.2 MMOL/L (24-32); TOTAL PROTEIN 6.2 G/DL (6.4-8.2); eGFR 89 ML/MIN
--- NOTE | 2019-07-06 06:48 | NUR ---
Patient in room [facility]. I have received report from Ambar WILLIAMSON and had the opportunity to ask questions and assume patient care.
[2019-07-06] MEDS: carBAMazepine 100mg chewable tablet PO SCH ×2 (07:29→21:28)
[2019-07-06] MEDS: amLODIPine 5mg tablet PO SCH (07:30)
[2019-07-06] MEDS: lactobacillus rhamnosus 10,000 MMU CELLS/CAPSULE PO SCH ×2 (07:30→18:46)
[2019-07-06] MEDS: ferrous gluconate 324mg tablet PO SCH ×2 (07:30→18:46)
[2019-07-06] MEDS: heparin, porcine 5000 units/ml vial SQ SCH ×2 (07:31→18:46)
[2019-07-06] MEDS: budesonide 0.5mg/2ml UD nebule IH SCH ×2 (07:48→20:48)
[2019-07-06 09:45] VITALS: BP 130/91
[2019-07-06 18:00] VITALS: BP 111/75
--- NOTE | 2019-07-06 18:29 | NUR ---
Problems reprioritized. Patient report given, questions answered & plan of care reviewed with Iris WILLIAMSON.
[2019-07-06] MEDS: Melatonin 3mg tablet PO SCH (21:28)
[2019-07-06] MEDS: temazepam 15mg capsule PO PRN (21:28)
[2019-07-06 22:00] VITALS: BP 119/76
[2019-07-07] MEDS: benzonatate 100mg capsule PO PRN ×2 (00:06→20:32)
[2019-07-07] MEDS: ipratropium/albuterol 3ml nebule IH SCH ×4 (03:00→20:15)
[2019-07-07] MEDS: HYDROcodone/acetaminophen 5mg/325mg tablet PO PRN ×5 (03:15→20:28)
[2019-07-07] MEDS: vancomycin 250MG/10ML UD oral solution 10ML BOTTLE PO SCH ×4 (03:15→20:26)
[2019-07-07 06:00] VITALS: BP 117/79
[2019-07-07 06:09] LABS: BASOPHILS # (AUTO) 0.1 X10'3 (0-0.2); BASOPHILS % (AUTO) 0.9 % (0-1); EOSINOPHILS # (AUTO) 0.3 X10'3 (0-0.9); EOSINOPHILS % (AUTO) 4.6 % (0-6); HEMATOCRIT 32.6 % (35.0-45.0); HEMOGLOBIN 10.6 g/dl (12.0-16.0); LYMPHOCYTES # (AUTO) 1.8 X10'3 (1.1-4.8); LYMPHOCYTES % (AUTO) 32.2 % (21-51); MEAN CORPUSCULAR HEMOGLOBIN 30.9 PG (27.0-31.0); MEAN CORPUSCULAR HGB CONC 32.6 g/dL (33.0-36.5); MEAN CORPUSCULAR VOLUME 94.9 FL (78-98); MONOCYTES # (AUTO) 0.7 X10'3 (0-0.9); MONOCYTES % (AUTO) 12.3 % (2-12); NEUTROPHILS # (AUTO) 2.8 X10'3 (1.8-7.7); PLATELET COUNT 452 X10'3 (140-440); RED BLOOD COUNT 3.43 X10'6 (4.20-5.60); WHITE BLOOD COUNT 5.6 X10'3 (4.5-11.0)
[2019-07-07 06:27] LABS: ALANINE AMINOTRANSFERASE 26 U/L (12-78); ALBUMIN 3.1 G/DL (3.4-5.0); ALBUMIN/GLOBULIN RATIO 0.9 (1.1-1.5); ALKALINE PHOSPHATASE 183 IU/L (46-116); ANION GAP 5 (8-16); ASPARTATE AMINO TRANSFERASE 25 U/L (10-37); BILIRUBIN,TOTAL 0.2 MG/DL (0.1-1.0); BLOOD UREA NITROGEN 13 MG/DL (7-18); BUN/CREATININE RATIO 18.3 (6.6-38.0); CALCIUM 8.5 MG/DL (8.5-10.1); CHLORIDE 107 MMOL/L (99-107); CREATININE 0.71 MG/DL (0.40-0.90); GLUCOSE 95 MG/DL (70-104); MAGNESIUM 1.9 MG/DL (1.5-2.4); POTASSIUM 4.1 MMOL/L (3.5-5.1); SODIUM 144 MMOL/L (135-145); TOTAL CARBON DIOXIDE 31.7 MMOL/L (24-32); TOTAL PROTEIN 6.5 G/DL (6.4-8.2); eGFR 82 ML/MIN
--- NOTE | 2019-07-07 06:46 | NUR ---
reported to days. noted pt able to transfer to [facility] stand by assist.
[2019-07-07] MEDS: amLODIPine 5mg tablet PO SCH (08:00)
[2019-07-07] MEDS: budesonide 0.5mg/2ml UD nebule IH SCH ×2 (08:12→20:15)
[2019-07-07] MEDS: heparin, porcine 5000 units/ml vial SQ SCH ×2 (08:43→20:27)
[2019-07-07] MEDS: lactobacillus rhamnosus 10,000 MMU CELLS/CAPSULE PO SCH ×2 (08:43→20:27)
[2019-07-07] MEDS: ferrous gluconate 324mg tablet PO SCH ×2 (08:44→20:28)
[2019-07-07] MEDS: carBAMazepine 100mg chewable tablet PO SCH ×2 (08:44→20:28)
[2019-07-07 10:00] VITALS: BP 106/67
--- NOTE | 2019-07-07 14:12 | NUR ---
Initial: Pt admit w/ L hip fx hx prolonged recovery per MD note. Per MD note non-surgical conservative management at this time. Pt PO 50-75% avg meals meeting needs. Diarrhea noted w/ recent c.diff hx receiving vancomycin per MD note. No nutrition concerns at this time. Will continue to monitor. Rec: 1. continue regular diet 2. monitor for additional protein needs 3. wt per rx Addendum: 07/07/19 at [address] Amended: Links added.
[2019-07-07 18:00] VITALS: BP 116/81
--- NOTE | 2019-07-07 18:10 | NUR ---
Patient in room [facility]. I have received report from CLAY Burton and had the opportunity to ask questions and assume patient care.
--- NOTE | 2019-07-07 18:27 | NUR ---
Problems reprioritized. Patient report given, questions answered & plan of care reviewed with Haley WILLIAMSON.
[2019-07-07] MEDS: temazepam 15mg capsule PO PRN (20:28)
[2019-07-07] MEDS: Melatonin 3mg tablet PO SCH (20:28)
[2019-07-07 22:00] VITALS: BP 131/74
[2019-07-08] MEDS: HYDROcodone/acetaminophen 5mg/325mg tablet PO PRN ×6 (00:37→20:51)
[2019-07-08] MEDS: vancomycin 250MG/10ML UD oral solution 10ML BOTTLE PO SCH ×4 (01:39→20:49)
[2019-07-08] MEDS: ipratropium/albuterol 3ml nebule IH SCH ×4 (03:48→20:13)
[2019-07-08] MEDS: benzonatate 100mg capsule PO PRN ×3 (04:25→20:50)
[2019-07-08 06:10] VITALS: BP 131/74
--- NOTE | 2019-07-08 06:32 | NUR ---
I have received patient report from Haley WILLIAMSON
--- NOTE | 2019-07-08 06:36 | NUR ---
Problems reprioritized. Patient report given, questions answered & plan of care reviewed with CALY Henriquez.
[2019-07-08] MEDS: lactobacillus rhamnosus 10,000 MMU CELLS/CAPSULE PO SCH ×2 (08:19→20:50)
[2019-07-08] MEDS: ferrous gluconate 324mg tablet PO SCH ×2 (08:19→20:50)
[2019-07-08] MEDS: amLODIPine 5mg tablet PO SCH (08:20)
[2019-07-08] MEDS: carBAMazepine 100mg chewable tablet PO SCH ×2 (08:20→20:50)
[2019-07-08] MEDS: heparin, porcine 5000 units/ml vial SQ SCH ×2 (08:21→20:52)
[2019-07-08] MEDS: budesonide 0.5mg/2ml UD nebule IH SCH ×2 (08:28→20:13)
[2019-07-08 10:00] VITALS: BP 126/77
[2019-07-08 18:00] VITALS: BP 131/86
--- NOTE | 2019-07-08 18:39 | NUR ---
Patient report given to Haley WILLIAMSON
[2019-07-08] MEDS: Melatonin 3mg tablet PO SCH (20:50)
[2019-07-08] MEDS: temazepam 15mg capsule PO PRN (21:48)
[2019-07-08 22:00] VITALS: BP 140/77
[2019-07-09] MEDS: vancomycin 250MG/10ML UD oral solution 10ML BOTTLE PO SCH ×4 (01:28→19:53)
[2019-07-09] MEDS: HYDROcodone/acetaminophen 5mg/325mg tablet PO PRN ×5 (01:31→20:34)
--- NOTE | 2019-07-09 03:04 | NUR ---
Patient in room [facility]. I have received report from wilver and had the opportunity to ask questions and assume patient care.
[2019-07-09] MEDS: ipratropium/albuterol 3ml nebule IH SCH ×4 (03:37→20:45)
[2019-07-09] MEDS: benzonatate 100mg capsule PO PRN ×2 (04:54→20:36)
[2019-07-09 06:00] VITALS: BP 157/87
--- NOTE | 2019-07-09 06:00 | NUR ---
Patient in room [facility]. I have received report from Haley and Rhett and had the opportunity to ask questions and assume patient care.
--- NOTE | 2019-07-09 06:24 | NUR ---
Problems reprioritized. Patient report given, questions answered & plan of care reviewed with
[2019-07-09] MEDS: ferrous gluconate 324mg tablet PO SCH ×2 (09:10→19:53)
[2019-07-09] MEDS: lactobacillus rhamnosus 10,000 MMU CELLS/CAPSULE PO SCH ×2 (09:10→19:53)
[2019-07-09] MEDS: carBAMazepine 100mg chewable tablet PO SCH ×2 (09:11→19:54)
[2019-07-09] MEDS: budesonide 0.5mg/2ml UD nebule IH SCH ×2 (09:12→20:45)
[2019-07-09] MEDS: heparin, porcine 5000 units/ml vial SQ SCH ×2 (09:12→19:57)
[2019-07-09] MEDS: amLODIPine 5mg tablet PO SCH (09:13)
[2019-07-09 10:00] VITALS: BP 153/91
[2019-07-09 18:00] VITALS: BP 119/87
--- NOTE | 2019-07-09 18:00 | NUR ---
Patient in room [facility]. I have received report from reliance and had the opportunity to ask questions and assume patient care.
--- NOTE | 2019-07-09 18:15 | NUR ---
Patient in room [facility]. I have received report from CLAY Cobb and had the opportunity to ask questions and assume patient care.
--- NOTE | 2019-07-09 18:16 | NUR ---
Problems reprioritized. Patient report given, questions answered & plan of care reviewed with Haley and Will.
[2019-07-09] MEDS: temazepam 15mg capsule PO PRN (20:33)
[2019-07-09] MEDS: Melatonin 3mg tablet PO SCH (20:34)
[2019-07-09 22:00] VITALS: BP 101/63
[2019-07-10] MEDS: HYDROcodone/acetaminophen 5mg/325mg tablet PO PRN ×6 (00:20→21:04)
[2019-07-10] MEDS: vancomycin 250MG/10ML UD oral solution 10ML BOTTLE PO SCH ×4 (02:06→20:49)
[2019-07-10] MEDS: ipratropium/albuterol 3ml nebule IH SCH ×4 (03:30→19:42)
[2019-07-10] MEDS: benzonatate 100mg capsule PO PRN ×2 (04:37→21:10)
--- NOTE | 2019-07-10 06:15 | NUR ---
Problems reprioritized. Patient report given, questions answered & plan of care reviewed with CLAY Catherine.
[2019-07-10 06:32] VITALS: BP 153/80
--- NOTE | 2019-07-10 07:03 | NUR ---
RECEIVED REPORT FROM KRISHNA
[2019-07-10] MEDS: heparin, porcine 5000 units/ml vial SQ SCH ×2 (07:51→20:50)
[2019-07-10] MEDS: amLODIPine 5mg tablet PO SCH (07:54)
[2019-07-10] MEDS: ferrous gluconate 324mg tablet PO SCH ×2 (07:54→20:49)
[2019-07-10] MEDS: lactobacillus rhamnosus 10,000 MMU CELLS/CAPSULE PO SCH ×2 (07:54→20:49)
[2019-07-10] MEDS: carBAMazepine 100mg chewable tablet PO SCH ×2 (07:56→20:49)
[2019-07-10] MEDS: budesonide 0.5mg/2ml UD nebule IH SCH ×2 (09:55→19:42)
[2019-07-10 10:00] VITALS: BP 115/64
[2019-07-10 17:00] VITALS: BP 115/85
--- NOTE | 2019-07-10 18:09 | NUR ---
report given to mp nice
[2019-07-10] MEDS: Melatonin 3mg tablet PO SCH (20:49)
[2019-07-10] MEDS: temazepam 15mg capsule PO PRN (21:02)
[2019-07-10 22:00] VITALS: BP 128/92
[2019-07-11] MEDS: HYDROcodone/acetaminophen 5mg/325mg tablet PO PRN ×3 (01:08→09:53)
[2019-07-11] MEDS: vancomycin 250MG/10ML UD oral solution 10ML BOTTLE PO SCH ×2 (01:09→08:37)
[2019-07-11] MEDS: ipratropium/albuterol 3ml nebule IH SCH ×2 (02:42→09:07)
[2019-07-11 06:00] VITALS: BP 142/79
--- NOTE | 2019-07-11 06:07 | NUR ---
Problems reprioritized. Patient report given, questions answered & plan of care reviewed with Bassam WILLIAMSON.
--- NOTE | 2019-07-11 06:53 | NUR ---
Patient in room [facility]. I have received report from Flower WILLIAMSON and had the opportunity to ask questions and assume patient care.
[2019-07-11] MEDS: lactobacillus rhamnosus 10,000 MMU CELLS/CAPSULE PO SCH (08:38)
[2019-07-11] MEDS: carBAMazepine 100mg chewable tablet PO SCH (08:38)
[2019-07-11] MEDS: ferrous gluconate 324mg tablet PO SCH (08:38)
[2019-07-11] MEDS: amLODIPine 5mg tablet PO SCH (08:40)
[2019-07-11] MEDS: heparin, porcine 5000 units/ml vial SQ SCH (08:41)
[2019-07-11] MEDS: budesonide 0.5mg/2ml UD nebule IH SCH (09:07)
[2019-07-11] MEDS ORDERED: HYDR-4383 PO (09:11)
[2019-07-11 10:00] VITALS: BP 147/82
--- NOTE | 2019-07-11 12:03 | NUR ---
kumar hospitalist [phone] patient is requesting a rx for Restoril to help her sleep , will continue to monitor
[2019-07-11] MEDS ORDERED: TEMA15CA PO (12:10)
--- NOTE | 2019-07-11 12:40 | NUR ---
Patient discharged to home with spouse in private vehicle, patient educated on medications and follow up appointments, all belongings sent with patient, patient stable upon discharge
--- NOTE | 2019-07-11 13:06 | NUR ---
called patient to let them know purse was left in room there was no answer on cell phone, left message for daughter Lou, patients picked up nicho
== END 2019-07-11 12:41 | disposition home health service (06) | DRG 551 ==
LOC: ER 17:14 → ORTHO 4S 23:57 → CMPBEDREQ 07-04 19:57
PROVIDERS: ADMIT Internal Medicine; ATTEND Family Medicine
DX: S32.19XA Other fracture of sacrum, initial encounter for closed fracture (principal); J96.92 Respiratory failure, unspecified with hypercapnia; F12.90 Cannabis use, unspecified, uncomplicated; W01.0XXA Fall on same level from slipping, tripping and stumbling without subsequent striking against object, initial encounter; Y93.01 Activity, walking, marching and hiking; F32.9 Major depressive disorder, single episode, unspecified; J44.9 Chronic obstructive pulmonary disease, unspecified; E87.6 Hypokalemia; I10 Essential (primary) hypertension; Z79.51 Long term (current) use of inhaled steroids; Z91.81 History of falling; Z59.0 Homelessness; Y92.89 Other specified places as the place of occurrence of the external cause; Y99.8 Other external cause status; Z88.5 Allergy status to narcotic agent; Z91.018 Allergy to other foods; Z82.5 Family history of asthma and other chronic lower respiratory diseases; Z82.3 Family history of stroke; Z87.891 Personal history of nicotine dependence
CPT/HCPCS: 36415; 72192; 73502; 80053; 83735; 85025; 87081; 94640; 94667; 94668; 94760; 96372; 96374; 97110; 97116; 97161; 97530; 99285; G0378; J1644; J1885; J3010; J7626

== ENCOUNTER 2020-04-02 13:30 | Emergency (ER) | payer MEDICARE, MEDICAID ==
[~2020-04-02] VITALS: Ht 160 cm; Wt 50.0 kg
[~2020-04-02 13:30] MED LIST changes: +ALBU2.5V10 INH; -AMLO5TAB PO; +FERR324T PO; +HYDR-4383 PO; -LOPE-144 PO; +MELA3TAB39 PO; -MELA3TAB64 PO; -SULF1TAB49 PO; +TEMA15CA PO; -VANC250C12 PO
[2020-04-02] MEDS ORDERED: dexamethasone sod phosphate 10mg/ml inj IV STA (13:47)
[2020-04-02] MEDS ORDERED: ipratropium/albuterol 3ml nebule NEB ONE (13:50)
[2020-04-02 14:17] LABS: BASOPHILS # (AUTO) 0.1 X10'3 (0-0.2); BASOPHILS % (AUTO) 0.6 % (0-1); EOSINOPHILS # (AUTO) 0.2 X10'3 (0-0.9); EOSINOPHILS % (AUTO) 1.8 % (0-6); HEMATOCRIT 34.9 % (35.0-45.0); HEMOGLOBIN 11.6 g/dl (12.0-16.0); LYMPHOCYTES # (AUTO) 0.9 X10'3 (1.1-4.8); MEAN CORPUSCULAR HEMOGLOBIN 32.6 PG (27.0-31.0); MEAN CORPUSCULAR HGB CONC 33.3 g/dL (33.0-36.5); MEAN CORPUSCULAR VOLUME 98.2 FL (78-98); MEAN PLATELET VOLUME 7.1 FL (7.4-10.4); MONOCYTES # (AUTO) 0.8 X10'3 (0-0.9); MONOCYTES % (AUTO) 9.2 % (2-12); NEUTROPHILS # (AUTO) 7.2 X10'3 (1.8-7.7); NEUTROPHILS % (AUTO) 78.4 % (42-75); PLATELET COUNT 319 X10'3 (140-440); RED BLOOD COUNT 3.56 X10'6 (4.20-5.60); RED CELL DISTRIBUTION WIDTH 13.1 % (11.5-14.5); WHITE BLOOD COUNT 9.2 X10'3 (4.5-11.0)
[2020-04-02] MEDS ORDERED: HYDROcodone/acetaminophen 5mg/325mg tablet PO ONE (14:30)
[2020-04-02 14:33] LABS: ALANINE AMINOTRANSFERASE 10 U/L (12-78); ALBUMIN 3.5 G/DL (3.4-5.0); ALBUMIN/GLOBULIN RATIO 0.9 (1.1-1.5); ALKALINE PHOSPHATASE 78 IU/L (46-116); ANION GAP 7 (8-16); ASPARTATE AMINO TRANSFERASE 14 U/L (10-37); BILIRUBIN,TOTAL 0.4 MG/DL (0.1-1.0); BLOOD UREA NITROGEN 11 MG/DL (7-18); BUN/CREATININE RATIO 13.3 (6.6-38.0); CALCIUM 8.8 MG/DL (8.5-10.1); CHLORIDE 106 MMOL/L (99-107); CREATININE 0.83 MG/DL (0.40-0.90); GLUCOSE 112 MG/DL (70-104); POTASSIUM 3.8 MMOL/L (3.5-5.1); SODIUM 143 MMOL/L (135-145); TOTAL CARBON DIOXIDE 29.7 MMOL/L (24-32); TOTAL PROTEIN 7.3 G/DL (6.4-8.2); eGFR 68 ML/MIN
[2020-04-02] MEDS ORDERED: phytonadione inj. 10 MG in normal saline 100ml IV soln 99 ML IV ONE (15:35)
[2020-04-02] MEDS ORDERED: NALO4SPR NS (15:52)
[2020-04-02] MEDS ORDERED: AZIT250T83 PO (15:52)
[2020-04-02] MEDS ORDERED: PRED20TA PO (15:52)
[2020-04-02 16:08] VITALS: BP 104/81
--- NOTE | 2020-04-02 16:10 | NUR ---
Discussed pt's concern about abx script w/ WENDY Rosario. After review of pt hx of c. diff in 2016, ok'd use of abx as prescribed.
== END 2020-04-02 16:23 | disposition home or self-care (01) ==
LOC: ER 13:31
DX: J44.1 Chronic obstructive pulmonary disease with (acute) exacerbation (principal); M19.90 Unspecified osteoarthritis, unspecified site; I10 Essential (primary) hypertension; F31.9 Bipolar disorder, unspecified; F12.90 Cannabis use, unspecified, uncomplicated; F15.90 Other stimulant use, unspecified, uncomplicated; Z86.69 Personal history of other diseases of the nervous system and sense organs; Z98.890 Other specified postprocedural states; Z59.0 Homelessness; Z88.5 Allergy status to narcotic agent; Z88.8 Allergy status to other drugs, medicaments and biological substances; Z79.2 Long term (current) use of antibiotics; Z79.899 Other long term (current) drug therapy
CPT/HCPCS: 36415; 71045; 80053; 84484; 85025; 93005; 94640; 96374; 99285; J1100; 94760

== ENCOUNTER 2021-01-02 19:17 | Emergency (ER) | payer MEDICARE, MEDICAID ==
[~2021-01-02] VITALS: Ht 160 cm; Wt 47.7 kg
[~2021-01-02 19:17] MED LIST changes: +NALO4SPR NS
[2021-01-02 20:18] LABS: BASOPHILS # (AUTO) 0.1 X10'3 (0-0.2); BASOPHILS % (AUTO) 0.9 % (0-1); EOSINOPHILS # (AUTO) 0.2 X10'3 (0-0.9); EOSINOPHILS % (AUTO) 3.6 % (0-6); HEMATOCRIT 37.8 % (35.0-45.0); HEMOGLOBIN 12.2 g/dl (12.0-16.0); LYMPHOCYTES # (AUTO) 0.9 X10'3 (1.1-4.8); LYMPHOCYTES % (AUTO) 15.2 % (21-51); MEAN CORPUSCULAR HEMOGLOBIN 31.5 PG (27.0-31.0); MEAN CORPUSCULAR HGB CONC 32.2 g/dL (33.0-36.5); MEAN CORPUSCULAR VOLUME 97.7 FL (78-98); MEAN PLATELET VOLUME 7.4 FL (7.4-10.4); MONOCYTES # (AUTO) 0.5 X10'3 (0-0.9); MONOCYTES % (AUTO) 7.4 % (2-12); NEUTROPHILS # (AUTO) 4.4 X10'3 (1.8-7.7); NEUTROPHILS % (AUTO) 72.9 % (42-75); PLATELET COUNT 344 X10'3 (140-440); RED BLOOD COUNT 3.86 X10'6 (4.20-5.60); RED CELL DISTRIBUTION WIDTH 12.8 % (11.5-14.5); WHITE BLOOD COUNT 6.1 X10'3 (4.5-11.0)
[2021-01-02 20:23] LABS: ALANINE AMINOTRANSFERASE 18 U/L (12-78); ALBUMIN/GLOBULIN RATIO 1.1 (1.1-1.5); ALKALINE PHOSPHATASE 65 IU/L (46-116); ANION GAP 4 (8-16); ASPARTATE AMINO TRANSFERASE 14 U/L (10-37); BILIRUBIN,TOTAL 0.1 MG/DL (0.1-1.0); BLOOD UREA NITROGEN 19 MG/DL (7-18); BUN/CREATININE RATIO 24.7 (6.6-38.0); CALCIUM 8.9 MG/DL (8.5-10.1); CHLORIDE 103 MMOL/L (99-107); CREATININE 0.77 MG/DL (0.40-0.90); GLUCOSE 95 MG/DL (70-104); POTASSIUM 4.9 MMOL/L (3.5-5.1); SODIUM 140 MMOL/L (135-145); TOTAL CARBON DIOXIDE 32.7 MMOL/L (24-32); TOTAL PROTEIN 7.7 G/DL (6.4-8.2); eGFR 74 ML/MIN
[2021-01-02] MEDS ORDERED: cloNIDine 0.1 mg tablet PO ONE (20:40)
[2021-01-02 20:47] VITALS: BP 156/107
== END 2021-01-02 20:52 | disposition home or self-care (01) ==
LOC: ER 19:18
DX: I10 Essential (primary) hypertension (principal); J44.9 Chronic obstructive pulmonary disease, unspecified; F31.9 Bipolar disorder, unspecified; F17.200 Nicotine dependence, unspecified, uncomplicated; F12.90 Cannabis use, unspecified, uncomplicated; F15.90 Other stimulant use, unspecified, uncomplicated; Z86.69 Personal history of other diseases of the nervous system and sense organs; Z87.11 Personal history of peptic ulcer disease; Z98.890 Other specified postprocedural states; Z59.0 Homelessness; Z88.5 Allergy status to narcotic agent; Z91.018 Allergy to other foods; Z79.899 Other long term (current) drug therapy
CPT/HCPCS: 36415; 71045; 80053; 83880; 84484; 85025; 93005; 99285

== ENCOUNTER 2021-01-15 12:21 | Emergency (ER) | payer MEDICARE, MEDICAID ==
[~2021-01-15] VITALS: Ht 160 cm; Wt 40.0 kg
[2021-01-15 14:34] LABS: BASOPHILS # (AUTO) 0.1 X10'3 (0-0.2); BASOPHILS % (AUTO) 0.8 % (0-1); EOSINOPHILS # (AUTO) 0.3 X10'3 (0-0.9); EOSINOPHILS % (AUTO) 3.6 % (0-6); HEMATOCRIT 34.2 % (35.0-45.0); HEMOGLOBIN 11.2 g/dl (12.0-16.0); MEAN CORPUSCULAR HEMOGLOBIN 31.5 PG (27.0-31.0); MEAN CORPUSCULAR HGB CONC 32.8 g/dL (33.0-36.5); MEAN PLATELET VOLUME 6.9 FL (7.4-10.4); MONOCYTES # (AUTO) 0.7 X10'3 (0-0.9); MONOCYTES % (AUTO) 9.2 % (2-12); NEUTROPHILS # (AUTO) 5.2 X10'3 (1.8-7.7); NEUTROPHILS % (AUTO) 72.4 % (42-75); PLATELET COUNT 373 X10'3 (140-440); RED BLOOD COUNT 3.56 X10'6 (4.20-5.60); WHITE BLOOD COUNT 7.1 X10'3 (4.5-11.0)
[2021-01-15 14:56] LABS: PARTIAL THROMBOPLASTIN TIME 34 SECONDS (22-32)
[2021-01-15 14:59] LABS: ALANINE AMINOTRANSFERASE 21 U/L (12-78); ALBUMIN 3.2 G/DL (3.4-5.0); ALBUMIN/GLOBULIN RATIO 0.7 (1.1-1.5); ALKALINE PHOSPHATASE 71 IU/L (46-116); ANION GAP 7 (8-16); ASPARTATE AMINO TRANSFERASE 15 U/L (10-37); BILIRUBIN,TOTAL 0.2 MG/DL (0.1-1.0); BLOOD UREA NITROGEN 8 MG/DL (7-18); BUN/CREATININE RATIO 12.7 (6.6-38.0); CALCIUM 9.3 MG/DL (8.5-10.1); CHLORIDE 102 MMOL/L (99-107); CREATININE 0.63 MG/DL (0.40-0.90); GLUCOSE 95 MG/DL (70-104); SODIUM 143 MMOL/L (135-145); TOTAL CARBON DIOXIDE 33.7 MMOL/L (24-32); TOTAL PROTEIN 7.9 G/DL (6.4-8.2); eGFR > 90 ML/MIN
[2021-01-15 15:00] LABS: MAGNESIUM 2.2 MG/DL (1.5-2.4)
[2021-01-15] MEDS ORDERED: ipratropium/albuterol 3ml nebule NEB ONE (17:35)
[2021-01-15 18:38] VITALS: BP 141/90
== END 2021-01-15 18:39 | disposition home or self-care (01) ==
LOC: ER 12:22
DX: K52.9 Noninfective gastroenteritis and colitis, unspecified (principal); R06.02 Shortness of breath; R07.89 Other chest pain; G40.909 Epilepsy, unspecified, not intractable, without status epilepticus; J44.9 Chronic obstructive pulmonary disease, unspecified; I10 Essential (primary) hypertension; Z87.81 Personal history of (healed) traumatic fracture; Z87.11 Personal history of peptic ulcer disease; Z79.899 Other long term (current) drug therapy
CPT/HCPCS: 36415; 71045; 80053; 83735; 83880; 84484; 85025; 85610; 85730; 93005; 94640; 99285